=== PATIENT | female | born 1945 | race African-American/Black ===

== ENCOUNTER 2019-02-16 21:58 | Inpatient (IN) | payer BC, MEDICARE ==
[2019-02-16 22:30] LABS: INTERNATIONAL RATION (INR) 0.96; PROTHROMBIN TIME 13.3 SEC (11.4-15.4)
[2019-02-16 22:31] LABS: PARTIAL THROMBOPLASTIN TIME 31.1 SEC (23.5-35.8)
[2019-02-16] MEDS ORDERED: ONDANSETRON HCL INJ/PF 4 MG/2 ML SDV ONE (22:37)
[2019-02-16 22:39] LABS: ABSOLUTE EOSINOPHILS # (AUTO) 0.1 10^3/uL (0.0-0.6); ABSOLUTE MONOCYTES (AUTO) 0.6 10^3/uL (0.1-1.4); ABSOLUTE NEUT (AUTO) 2.5 10^3/uL (1.7-8.2); BASOPHILS % (AUTO) 0.5 % (0-2); EOSINOPHILS % (AUTO) 1.1 % (0-6); HEMATOCRIT 37.3 % (36.0-47.0); HEMOGLOBIN 12.6 g/dL (12.0-15.5); LYMPHOCYTES % (AUTO) 39.4 % (13-45); MEAN CORPUSCULAR HEMOGLOBIN 31.4 pg (27.0-33.4); MEAN CORPUSCULAR HGB CONC 33.9 g/dL (32.0-36.0); MEAN CORPUSCULAR VOLUME 93 fl (80-97); MONOCYTES % (AUTO) 11.2 % (3-13); PLATELET COUNT 280 10^3/uL (150-450); RED BLOOD COUNT 4.02 10^6/uL (3.72-5.28); RED CELL DISTRIBUTION WIDTH 14.3 % (11.5-14.0); SEGMENTED NEUTROPHILS % (AUTO) 47.8 % (42-78); TOTAL CELLS COUNTED % (AUTO) 100 %; WHITE BLOOD COUNT 5.1 10^3/uL (4.0-10.5)
--- NOTE | 2019-02-16 22:39 | RADIOLOGY REPORT (SQ) ---
EXAM DESCRIPTION: XR CHEST 1 VIEW COMPLETED DATE/TME: 02/16/2019 22:07 CLINICAL HISTORY: 73 years, Female, difficulty speaking COMPARISON: None. NUMBER OF VIEWS: 1 TECHNIQUE: Portable chest LIMITATIONS: None. FINDINGS: Heart size normal. Lungs clear. No pneumothorax. Mild atheromatous change thoracic aorta. Osteopenia. IMPRESSION: No acute cardiopulmonary process copyright 2010 [employer]- All Rights Reserved
--- NOTE | 2019-02-16 22:41 | RADIOLOGY REPORT (SQ) ---
EXAM DESCRIPTION: CT HEAD WITHOUT IV CONTRAST COMPLETED DATE/TME: 02/16/2019 22:07 CLINICAL HISTORY: 73 years, Female, difficulty speaking COMPARISON: None. TECHNIQUE: 208 Images stored on PACS. All CT scanners at this facility use dose modulation, iterative reconstruction, and/or weight based dosing when appropriate to reduce radiation dose to as low as reasonably achievable (ALARA). [facility]: Dose Right [facility]: CareDose [facility]: Dose Right [facility]: Teradose 4D [facility]: Picurio LIMITATIONS: None. FINDINGS: Globes are intact. Polyp of the left maxillary sinus. No displaced or depressed skull fracture. No intra or extra-axial hemorrhage. CT is limited for evaluation of acute infarct. However, there is a poorly defined area of diminished attenuation in the left frontal parietal region, concerning for evolving infarct. Consider further assessment with dedicated MRI. In addition, there is an area of diminished attenuation in the right posterior parietal region which could reflect an area of age indeterminate infarct as well. IMPRESSION: Poorly defined areas of diminished attenuation in the left frontal and right posterior parietal regions, concerning for areas of age indeterminate infarct. Consider follow-up with dedicated MRI. TECHNICAL DOCUMENTATION: Quality ID # 436: Final reports with documentation of one or more dose reduction techniques (e.g., Automated exposure control, adjustment of the mA and/or kV according to patient size, use of iterative reconstruction technique) copyright 2011 [employer]- All Rights Reserved
--- NOTE | 2019-02-16 22:43 | ER Document Report ---
ED General - General Chief Complaint: Altered Mental Status Stated Complaint: ALTERED MENTAL STATUS Time Seen by Provider: 02/16/19 22:20 Mode of Arrival: Medic Information source: Relative, Emergency Med Personnel Cannot obtain history due to: Altered mental status Notes: 73-year-old female with hypertension, atrial fibrillation presents via EMS from home after her grandson noticed that the patient was unable to complete her sentences. Patient was last seen well yesterday around 3 PM. She lives independently and is usually alert and oriented x3 and walks. Patient's daughter is at the bedside and is trying to call her son but has been unable to reach him. Patient was recently found to have atrial fibrillation and was started on metoprolol but never started her Eliquis per the family. Family denies previous history of stroke. Past Medical History - General Information source: Relative, Emergency Med Personnel Cannot obtain history due to: Uncooperative, Altered mental status - Social History Smoking Status: Unknown if Ever Smoked Frequency of alcohol use: None Drug Abuse: None Lives with: Alone Family History: Reviewed & Not Pertinent Patient has suicidal ideation: No Patient has homicidal ideation: No Review of Systems - Review of Systems -: Yes ROS unobtainable due to patient's medical condition Physical Exam - Vital signs Vitals: Pulse Ox 100 02/16/19 22:07 - Notes Notes: PHYSICAL EXAMINATION: GENERAL: Well-appearing, well-nourished and in no acute distress. HEAD: Atraumatic, normocephalic. EYES: Pupils equal round and reactive to light, extraocular movements intact, conjunctiva are normal. ENT: Nares patent, oropharynx clear without exudates. Moist mucous membranes. NECK: Normal range of motion, supple without lymphadenopathy LUNGS: Breath sounds clear to auscultation bilaterally and equal. No wheezes rales or rhonchi. HEART: Tachycardic, regular rhythm ABDOMEN: Soft, nontender, nondistended abdomen. No guarding, no rebound. No masses appreciated. Female : deferred Musculoskeletal: Normal range of motion, no pitting or edema. No cyanosis. NEUROLOGICAL: Alert, awake but does not follow commands. Aphasic. PSYCH: Normal mood, normal affect. SKIN: Warm, Dry, normal turgor, no rashes or lesions noted. Course - Re-evaluation Re-evalutation: 02/16/19 23:09 Laboratory 0402/16/19 02/16/19 22:15 22:15 22:15 WBC 5.1 RBC 4.02 Hgb 12.6 Hct 37.3 MCV 93 MCH 31.4 MCHC 33.9 RDW 14.3 H Plt Count 280 Seg Neutrophils % 47.8 Lymphocytes % 39.4 Monocytes % 11.2 Eosinophils % 1.1 Basophils % 0.5 Absolute Neutrophils 2.5 Absolute Lymphocytes 2.0 Absolute Monocytes 0.6 Absolute Eosinophils 0.1 Absolute Basophils 0.0 PT 13.3 INR 0.96 APTT 31.1 Sodium 142.5 Potassium 4.2 Chloride 106 Carbon Dioxide 26 Anion Gap 11 BUN 14 Creatinine 1.05 Est GFR ( Amer) > 60 Est GFR (Non-Af Amer) 52 L Glucose 114 H POC Glucose Calcium 9.9 Total Bilirubin 0.5 Direct Bilirubin 0.3 Neonat Total Bilirubin Not Reportable Neonat Direct Bilirubin Not Reportable Neonat Indirect Bili Not Reportable AST 20 ALT 21 Alkaline Phosphatase 90 Creatine Kinase 94 Total Protein 7.7 Albumin 4.1 02/16/19 22:23 WBC RBC Hgb Hct MCV MCH MCHC RDW Plt Count Seg Neutrophils % Lymphocytes % Monocytes % Eosinophils % Basophils % Absolute Neutrophils Absolute Lymphocytes Absolute Monocytes Absolute Eosinophils Absolute Basophils PT INR APTT Sodium Potassium Chloride Carbon Dioxide Anion Gap BUN Creatinine Est GFR ( Amer) Est GFR (Non-Af Amer) Glucose POC Glucose 106 Calcium Total Bilirubin Direct Bilirubin Neonat Total Bilirubin Neonat Direct Bilirubin Neonat Indirect Bili AST ALT Alkaline Phosphatase Creatine Kinase Total Protein Albumin Chest X-Ray 02/16/19 22:07 IMPRESSION: No acute cardiopulmonary process copyright 2010 [employer]- All Rights Reserved Head CT 02/16/19 22:07 IMPRESSION: Poorly defined areas of diminished attenuation in the left frontal and right posterior parietal regions, concerning for areas of age indeterminate infarct. Consider follow-up with dedicated MRI. TECHNICAL DOCUMENTATION: Quality ID # 436: Final reports with documentation of one or more dose reduction techniques (e.g., Automated exposure control, adjustment of the mA and/or kV according to patient size, use of iterative reconstruction technique) copyright 2011 [employer]- All Rights Reserved Temp Pulse Resp BP Pulse Ox 98 21 H 157/96 H 98 02/16/19 22:15 02/16/19 22:15 02/16/19 22:15 02/16/19 22:15 02/17/19 02:47 73-year-old female with with hypertension, new diagnosis of atrial fibrillation presents via EMS a phasic. Vital signs reviewed upon arrival and patient is tachycardic. She was placed on a playground monitor and found to be in atrial fibrillation with RVR. Patient is alert, awake and smiling but is unable to answer any questions. Patient moves all extremities but does not follow commands. Her daughters are at the bedside and she is unable to tell me their names. Patient's heart rate is 130 so Cardizem drip was initiated. Aspirin was given. CT of the head shows evidence of acute infarct. We are unable to establish a clear onset of symptoms and the patient was last seen completely well greater than 24 hours ago. CBC, CMP are unremarkable. Patient has been accepted for admission to the [facility] by the hospitalist Dr. Downey. - Vital Signs Vital signs: Temp Pulse Resp BP Pulse Ox 98.7 F 103 H 19 111/68 97 02/16/19 22:15 02/17/19 00:00 02/17/19 01:31 02/17/19 01:31 02/17/19 01:31 - Laboratory Result Diagrams: 02/16/19 22:15 02/16/19 22:15 Laboratory results interpreted by me: 02/16/19 02/16/19 02/16/19 22:15 22:15 22:15 RDW 14.3 H Est GFR (Non-Af Amer) 52 L Glucose 114 H LDL Cholesterol Direct 122 H - Diagnostic Test Radiology reviewed: Image reviewed, Reports reviewed - EKG Interpretation by Me Rate: Tachycardia Rhythm: A.Fib When compared to previous EKG there are: Changes noted Critical Care Note - Critical Care Note Total time excluding time spent on procedures (mins): 40 - Minutes of critical care time spent in direct contact evaluating and reevaluating the patient, treating symptoms, reviewing labs and studies and speaking with family and consultants excluding any procedures Discharge - Discharge Clinical Impression: Atrial fibrillation with RVR, Aphasia, Acute embolic stroke Condition: Fair Disposition: ADMITTED INPATIENT Admitting Provider: Shayan (Hospitalist) Unit Admitted: [facility]
[2019-02-16] MEDS ORDERED: DILTIAZEM HCL/D5W 125 MG/125 ML RTUINJ IV PRN ×2 (22:44→23:44)
[2019-02-16 22:57] LABS: ALANINE AMINOTRANSFERASE 21 U/L (9-52); ALBUMIN 4.1 g/dL (3.5-5.0); ALKALINE PHOSPHATASE 90 U/L (38-126); ANION GAP 11 (5-19); ASPARTATE AMINO TRANSFERASE 20 U/L (14-36); BILIRUBIN,DIRECT 0.3 mg/dL (0.0-0.4); BILIRUBIN,TOTAL 0.5 mg/dL (0.2-1.3); BLOOD UREA NITROGEN 14 mg/dL (7-20); CALCIUM 9.9 mg/dL (8.4-10.2); CARBON DIOXIDE 26 mmol/L (22-30); CHLORIDE 106 mmol/L (98-107); CREATINE KINASE 94 U/L (30-135); GLUCOSE 114 mg/dL (75-110); POTASSIUM 4.2 mmol/L (3.6-5.0); SODIUM 142.5 mmol/L (137-145); TOTAL PROTEIN 7.7 g/dL (6.3-8.2)
[2019-02-16] MEDS ORDERED: ASPIRIN 81 MG TABLET, CHEWABLE PO ONE (23:01)
[2019-02-16 23:09] LABS: CREATINE KINASE MB 0.36 ng/mL (<4.55)
[2019-02-16 23:19] LABS: TROPONIN I < 0.012 ng/mL
[2019-02-16] MEDS ORDERED: MAGNESIUM HYDROXIDE SUSP 30 ML UDCUP PO PRN (23:35)
[2019-02-16] MEDS ORDERED: TRAMADOL HCL 50 MG TABLET PO PRN (23:35)
[2019-02-16] MEDS ORDERED: DOCUSATE SODIUM 100 MG CAPSULE PO PRN (23:35)
[2019-02-16] MEDS ORDERED: TEMAZEPAM 15 MG CAPSULE PO PRN (23:35)
[2019-02-16] MEDS ORDERED: ONDANSETRON HCL INJ/PF 4 MG/2 ML SDV IV PRN (23:35)
[2019-02-16 23:39] LABS: CHOLESTEROL 177.54 mg/dL (0-200); TRIGLYCERIDES 58 mg/dL (<150)
[2019-02-16 23:50] LABS: DIRECT LDL 122 mg/dL (<100)
[2019-02-17] MEDS ORDERED: APIXABAN 5 MG TABLET PO ONE (01:00)
--- NOTE | 2019-02-17 03:53 | PDOC H&P ---
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 He noted that she was able to walk and move all of her extremities but was unable to speak and seemed to be unable to understand more complicated questions or commands. She was immediately brought to the hospital and was found to have an expressive aphasia and some degree of a receptive aphasia in the emergency room. CT confirmed areas of hypodensity consistent with indeterminate age infarct without evidence of any acute hemorrhage. Due to the patient's a aphasia she is unable to participate in her medical history. Her son relates that she was recently found to have atrial fibrillation by her dope mixer Dr. 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 Patient will be admitted to hospital follow the stroke protocol. Past Medical History Past Medical History: Past medical history, past surgical history, social history, family medical history and review of systems are severely limited by the patient's expressive and partial receptive aphasia. Most information is taken from the patient's records and information obtained from a family member. Cardiac Medical History: Reports: Atrial Fibrillation, Hypertension Denies: Myocardial Infarction Pulmonary Medical History: Denies: Asthma, Chronic Obstructive Pulmonary Disease (COPD) EENT Medical History: Reports: Eyes - Wears corrective lenses Denies: Cataracts Neurological Medical History: Denies: Hemorrhagic CVA, Ischemic CVA, Seizures Endocrine Medical History: Denies: Diabetes Mellitus Type 1, Diabetes Mellitus Type 2, Hyperthyroidism, Hypothyroidism Renal/ Medical History: Denies: Chronic Kidney Disease, Nephrolithiasis Malignancy Medical History: Reports: None GI Medical History: Denies: Cirrhosis, Hepatitis Musculoskeltal Medical History: Denies: Arthritis, Gout Skin Medical History: Denies: Eczema, Psoriasis Psychiatric Medical History: Denies: Alcohol Dependency, Substance Abuse, Tobacco Dependency Traumatic Medical History: Reports: None Hematology: Denies: Anemia, Bleeding Tendencies Infectious Medical History: Reports: None Past Surgical History Past Surgical History: Past surgical history is unknown, with no recent surgeries to the best knowledgeable source available. Social History Information Source: Relative Lives with: Alone Smoking Status: Never Smoker Frequency of Alcohol Use: None Hx Recreational Drug Use: No Drugs: None Hx Prescription Drug Abuse: No - Advance Directive Resuscitation Status: Full Code Surrogate healthcare decision maker:: Malinda Riki patient's daughter Family History Family History: Family history could not be obtained as no knowledgeable source for the patient's siblings or parents medical history was available. Parental Family History Reviewed: No Children Family History Reviewed: No Sibling(s) Family History Reviewed.: No Medication/Allergy Home Medications: Metoprolol Tartrate [Lopressor 25 mg Tablet] 25 mg PO BID 02/17/19 Propafenone HCl [Propafenone HCl ER] 225 mg PO BID 02/17/19 Review of Systems ROS unobtainable: Other - Could not be obtained due to patient's expressive and receptive aphasia. Physical Exam Vital Signs: Temp Pulse Resp BP Pulse Ox 98 21 H 157/96 H 98 02/16/19 22:15 02/16/19 22:15 02/16/19 22:15 02/16/19 22:15 General appearance: PRESENT: no acute distress, cooperative Head exam: PRESENT: atraumatic, normocephalic Eye exam: ABSENT: conjunctival injection, scleral icterus Ear exam: PRESENT: normal external ear exam. ABSENT: bleeding, drainage Mouth exam: PRESENT: dry mucosa, neck supple Neck exam: ABSENT: thyromegaly, tracheal deviation Respiratory exam: PRESENT: clear to auscultation trista, symmetrical, unlabored Cardiovascular exam: PRESENT: irregular rhythm, tachycardia. ABSENT: clicks, gallop, rubs Pulses: PRESENT: normal radial pulses, normal dorsalis pedis pul Vascular exam: PRESENT: normal capillary refill. ABSENT: pallor GI/Abdominal exam: PRESENT: normal bowel sounds, soft Rectal exam: PRESENT: deferred Extremities exam: ABSENT: joint swelling, pedal edema Musculoskeletal exam: PRESENT: full ROM, normal inspection Neurological exam: PRESENT: alert, awake, CN II-XII grossly intact, aphasic Psychiatric exam: PRESENT: other - Unable to assess due to aphasia Skin exam: PRESENT: dry, intact, warm. ABSENT: jaundice, rash, urticaria Results Laboratory Results: 02/16/19 22:15 02/16/19 22:15 04/16/19 04/16/19 22:15 22:15 WBC 5.1 RBC 4.02 Hgb 12.6 Hct 37.3 MCV 93 MCH 31.4 MCHC 33.9 RDW 14.3 H Plt Count 280 Seg Neutrophils % 47.8 Lymphocytes % 39.4 Monocytes % 11.2 Eosinophils % 1.1 Basophils % 0.5 Absolute Neutrophils 2.5 Absolute Lymphocytes 2.0 Absolute Monocytes 0.6 Absolute Eosinophils 0.1 Absolute Basophils 0.0 Sodium 142.5 Potassium 4.2 Chloride 106 Carbon Dioxide 26 Anion Gap 11 BUN 14 Creatinine 1.05 Est GFR ( Amer) > 60 Est GFR (Non-Af Amer) 52 L Glucose 114 H Calcium 9.9 Total Bilirubin 0.5 AST 20 ALT 21 Alkaline Phosphatase 90 Total Protein 7.7 Albumin 4.1 02/16/19 22:15 Creatine Kinase 94 Impressions: Chest X-Ray 02/16/19 22:07 IMPRESSION: No acute cardiopulmonary process copyright 2010 [employer]- All Rights Reserved Head CT 02/16/19 22:07 IMPRESSION: Poorly defined areas of diminished attenuation in the left frontal and right posterior parietal regions, concerning for areas of age indeterminate infarct. Consider follow-up with dedicated MRI. TECHNICAL DOCUMENTATION: Quality ID # 436: Final reports with documentation of one or more dose reduction techniques (e.g., Automated exposure control, adjustment of the mA and/or kV according to patient size, use of iterative reconstruction technique) copyright 2010 [employer]- All Rights Reserved Assessment and Plan - Diagnosis (1) Acute embolic stroke Is this a current diagnosis for this admission?: Yes Plan: Patient will be evaluated with an MRI of the head/brain to more thoroughly identify the stroke. Additionally an MRA of the head and an MRI of the neck will be performed to evaluate patient's cerebrovascular supply. Patient will be entered into the stroke protocol program. (2) Aphasia Is this a current diagnosis for this admission?: Yes Plan: Patient will be evaluated by speech therapy with appropriate intervention as per their evaluation. (3) Atrial fibrillation with RVR Is this a current diagnosis for this admission?: Yes Plan: Patient will be treated with Cardizem IV until her heart rate has been stabilized. She will also be started on Eliquis 5 mg p.o. twice daily with her first dose stat. (4) HTN (hypertension) Qualifiers: Hypertension type: essential hypertension Qualified Code(s): I10 - Essential (primary) hypertension Is this a current diagnosis for this admission?: Yes Plan: Patient will be continued on her usual antihypertensive medications. Dr. Roman will be consulted for evaluation of his patient. - Time Time Spent with patient: 15-24 minutes Medications reviewed and adjusted accordingly: Yes Anticipated discharge: SNF - Inpatient Certification Based on my medical assessment, after consideration of the patient's comorbidities, presenting symptoms, or acuity I expect that the services needed warrant INPATIENT care.: Yes I certify that my determination is in accordance with my understanding of Medicare's requirements for reasonable and necessary INPATIENT services [42 CFR 412.3e].: Yes Medical Necessity: Need Close Monitoring Due to Risk of Patient Decompensation, Need For Continuous Telemetry Monitoring, Need for Neurological Checks, Risk of Complication if Not Cared For in Hospital
[2019-02-17 08:06] LABS: HEMOGLOBIN 12.2 g/dL (12.0-15.5); MEAN CORPUSCULAR HEMOGLOBIN 31.1 pg (27.0-33.4); MEAN CORPUSCULAR HGB CONC 33.8 g/dL (32.0-36.0); MEAN CORPUSCULAR VOLUME 92 fl (80-97); PLATELET COUNT 278 10^3/uL (150-450); RED BLOOD COUNT 3.91 10^6/uL (3.72-5.28); RED CELL DISTRIBUTION WIDTH 14.5 % (11.5-14.0); WHITE BLOOD COUNT 4.7 10^3/uL (4.0-10.5)
[2019-02-17 08:25] LABS: ANION GAP 7 (5-19); BLOOD UREA NITROGEN 12 mg/dL (7-20); CALCIUM 9.5 mg/dL (8.4-10.2); CARBON DIOXIDE 28 mmol/L (22-30); CHLORIDE 106 mmol/L (98-107); GLUCOSE 93 mg/dL (75-110); SODIUM 141.1 mmol/L (137-145)
--- NOTE | 2019-02-17 08:31 | EKG REPORT ---
SEVERITY:- ABNORMAL ECG - ATRIAL FIBRILLATION MULTIFORM VENTRICULAR PREMATURE COMPLEXES BORDERLINE PROLONGED QT INTERVAL : Confirmed by: Natacha Edward MD 17-Feb-2019 08:29:54
[2019-02-17] MEDS ORDERED: LORAZEPAM INJ 2 MG/1 ML VIAL IV ONE (09:00)
[2019-02-17 09:08] LABS: FREE T3 3.97 pg/mL (2.77-5.27); FREE T4 (FREE THYROXINE) 1.48 ng/dL (0.78-2.19)
[2019-02-17] MEDS: APIXABAN 5 MG TABLET PO SCH ×2 (10:33→17:44)
--- NOTE | 2019-02-17 10:44 | RADIOLOGY REPORT (SQ) ---
EXAM DESCRIPTION: MRA HEAD WITHOUT COMPLETED DATE/TIME: 02/17/2019 9:32 am REASON FOR STUDY: Acute receptive and expressive aphasia COMPARISON: None. TECHNIQUE: Axial 3-D [id number]-lrxenf acquisition imaging performed through the brain in the area of t he kashia of [place]. Images reformatted using 3-D MIPS. LIMITATIONS: None. FINDINGS: SOURCE IMAGES: No unexpected findings on source images. No large masses. 3-D MIP: No aneurysm. No occlusions. No significant stenosis. OTHER: No other significant finding. IMPRESSION: NORMAL MRA OF THE PAUMA OF [place]. TECHNICAL DOCUMENTATION: JOB ID: [id number] [employer]- All Rights Reserved Reading location - IP/workstation name: [email or web address]
--- NOTE | 2019-02-17 10:49 | RADIOLOGY REPORT (SQ) ---
EXAM DESCRIPTION: MRI HEAD WITHOUT COMPLETED DATE/TIME: 02/17/2019 9:32 am REASON FOR STUDY: Acute receptive and expressive aphasia COMPARISON: None. TECHNIQUE: Multiplanar imaging includes non-contrasted T1, T2, FLAIR, and diffusion with ADC map seq uences. Images stored on PACS. LIMITATIONS: None. FINDINGS: ANATOMY: No anomalies. Normal vascular flow voids. Pituitary fossa normal. CSF SPACES: Normal in size and contour. No hemorrhage. CEREBRUM: Sulci and gyri normal in size and contour. Prominent areas of increased white matter signa l on FLAIR imaging. No evidence of hemorrhage, mass, or extraaxial fluid collection. POSTERIOR FOSSA: No signal alteration. No hemorrhage. No edema, masses or mass effect. Internal rahul tory canals, cerebello-pontine angles, mastoids normal. DIFFUSION IMAGING: There is a large area of restricted diffusion in the left temporoparietal area. T here is a small area of restricted diffusion in the right temporal lobe. There is additional restric jovanny diffusion in the right posterior parietal lobe and in the right lobe of the cerebellum. ORBITS: No masses. Globes normal. PARANASAL SINUSES: No fluid levels. Mucosa normal. OTHER: No other significant finding. IMPRESSION: There is large acute infarction in the left frontotemporal lobe. There are smaller area s of acute infarction in the right anglican lobe and right posterior parietal lobe. There is a small a cute infarction in the right lobe of the cerebellum. EVIDENCE OF ACUTE STROKE: YES. Bilateral middle cerebral arteries. Right posterior cerebral artery . TECHNICAL DOCUMENTATION: JOB ID: [id number] [employer]- All Rights Reserved Reading location - IP/workstation name: [email or web address]
--- NOTE | 2019-02-17 12:52 | RADIOLOGY REPORT (SQ) ---
EXAM DESCRIPTION: CAROTID DOPPLER COMPLETED DATE/TIME: 02/17/2019 12:19 pm REASON FOR STUDY: Acute a aphasia receptive and expressive COMPARISON: None. TECHNIQUE: Grayscale ultrasound, Doppler velocity and spectra, and color Doppler images acquired of the extra-cranial carotid and vertebral arteries. Images stored on PACS. LIMITATIONS: None. FINDINGS: RIGHT CAROTID CCA Velocities: Within normal limits. ICA Velocities Peak systolic 70 cm/s. End diastolic 36 cm/s. Proximal ICA/CCA peak systolic ratio 1.0. Spectra normal. No significant plaque. LEFT CAROTID CCA Velocities: Within normal limits. ICA Velocities Peak systolic 85 cm/s. End diastolic 43 cm/s. Proximal ICA/CCA peak systolic ratio 1.4. Spectra normal. No significant plaque. VERTEBRAL ARTERIES: Antegrade flow. Normal waveforms. SUBCLAVIAN ARTERIES: Not imaged OTHER: No other significant finding. IMPRESSION: NO HEMODYNAMICALLY SIGNIFICANT STENOSIS. COMMENT: Quality ID #195: Velocity criteria are extrapolated from the diameter data as defined by t he Society of Radiologists in Ultrasound Consensus Conference. Radiology 2003: 229; 340-346. TECHNICAL DOCUMENTATION: JOB ID: [id number] [employer]- All Rights Reserved Reading location - IP/workstation name: [email or web address]
[2019-02-17] MEDS ORDERED: METOPROLOL TARTRATE PF/INJ 5 MG/5 ML SDV IV PRN (16:15)
[2019-02-17] MEDS: DEXTROSE 5%-NORMAL SALINE 1,000 ML IV PRN (17:08)
--- NOTE | 2019-02-17 18:46 | PDOC PROGRESS REPORT ---
Subjective Progress Note for:: 02/17/19 Subjective:: ALEXANDER MENA is a 73 year old female who presented to the emergency room with a history of sudden onset of aphasia noted by her son when he saw her today having noted that she was well yesterday at 3 PM with no sign of a aphasia at that time. He noted that she was able to walk and move all of her extremities but was unable to speak and seemed to be unable to understand more complicated questions or commands. She was immediately brought to the hospital and was f ound to have an expressive aphasia and some degree of a receptive aphasia in the emergency room. CT confirmed areas of hypodensity consistent with indeterminate age infarct without evidence of any acute hemorrhage. Due to the patient's a aphasia she is unable to participate in her medical history. 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 02/17/2019. Neurologically unchanged. Patient was anxious and fidgety in the morning and received 1 dose of IV benzos in preparation for undergoing MRI of the brain. Patient has been somnolent but arousable with severe a aphasia. Family has been on the bedside. MRI of brain confirmed bilateral MCA infarcts. 2D carotid and MRA head were negative. Pending 2D echo. Reason For Visit: ACUTE EMBOLIC STROKE Physical Exam Vital Signs: Temp Pulse Resp BP Pulse Ox 97.6 F 88 18 121/70 99 02/17/19 12:12 02/17/19 18:00 02/17/19 16:00 02/17/19 18:00 02/17/19 16:00 Intake & Output 02/16/19 02/17/19 02/18/19 06:59 06:59 06:59 Weight 65.9 kg General appearance: PRESENT: no acute distress, well-developed, well-nourished Head exam: PRESENT: atraumatic, normocephalic Eye exam: PRESENT: PERRLA Neck exam: ABSENT: carotid bruit, JVD, lymphadenopathy, thyromegaly Respiratory exam: PRESENT: clear to auscultation trista. ABSENT: rales, rhonchi, wheezes Cardiovascular exam: PRESENT: RRR. ABSENT: diastolic murmur, rubs, systolic murmur Extremities exam: PRESENT: full ROM. ABSENT: calf tenderness, clubbing, pedal edema Neurological exam: PRESENT: alert, awake, CN II-XII grossly intact, other - Moves all extremities. Easily arousable, does not follow any commands due to severe receptive and expressive aphasia. Skin exam: PRESENT: dry, intact, warm. ABSENT: cyanosis, rash Results Laboratory Results: 02/17/19 07:00 02/17/19 07:00 02/16/19 02/16/19 02/16/19 22:15 22:15 22:15 WBC 5.1 RBC 4.02 Hgb 12.6 Hct 37.3 MCV 93 MCH 31.4 MCHC 33.9 RDW 14.3 H Plt Count 280 Seg Neutrophils % 47.8 Lymphocytes % 39.4 Monocytes % 11.2 Eosinophils % 1.1 Basophils % 0.5 Absolute Neutrophils 2.5 Absolute Lymphocytes 2.0 Absolute Monocytes 0.6 Absolute Eosinophils 0.1 Absolute Basophils 0.0 Sodium 142.5 Potassium 4.2 Chloride 106 Carbon Dioxide 26 Anion Gap 11 BUN 14 Creatinine 1.05 Est GFR ( Amer) > 60 Est GFR (Non-Af Amer) 52 L Glucose 114 H Calcium 9.9 Total Bilirubin 0.5 AST 20 ALT 21 Alkaline Phosphatase 90 Total Protein 7.7 Albumin 4.1 Triglycerides 58 Cholesterol 177.54 LDL Cholesterol Direct 122 H VLDL Cholesterol 12.0 HDL Cholesterol 47 Free T4 Free T3 pg/mL 02/17/19 02/17/19 02/17/19 07:00 07:00 07:00 WBC 4.7 RBC 3.91 Hgb 12.2 Hct 36.0 MCV 92 MCH 31.1 MCHC 33.8 RDW 14.5 H Plt Count 278 Seg Neutrophils % Lymphocytes % Monocytes % Eosinophils % Basophils % Absolute Neutrophils Absolute Lymphocytes Absolute Monocytes Absolute Eosinophils Absolute Basophils Sodium 141.1 Potassium 4.0 Chloride 106 Carbon Dioxide 28 Anion Gap 7 BUN 12 Creatinine 0.96 Est GFR ( Amer) > 60 Est GFR (Non-Af Amer) 57 L Glucose 93 Calcium 9.5 Total Bilirubin AST ALT Alkaline Phosphatase Total Protein Albumin Triglycerides Cholesterol LDL Cholesterol Direct VLDL Cholesterol HDL Cholesterol Free T4 1.48 Free T3 pg/mL 3.97 02/16/19 02/16/19 22:15 22:15 Creatine Kinase 94 CK-MB (CK-2) 0.36 Troponin I < 0.012 Impressions: Chest X-Ray 02/16/19 22:07 IMPRESSION: No acute cardiopulmonary process copyright 2010 [employer]- All Rights Reserved Head CT 02/16/19 22:07 IMPRESSION: Poorly defined areas of diminished attenuation in the left frontal and right posterior parietal regions, concerning for areas of age indeterminate infarct. Consider follow-up with dedicated MRI. TECHNICAL DOCUMENTATION: Quality ID # 436: Final reports with documentation of one or more dose reduction techniques (e.g., Automated exposure control, adjustment of the mA and/or kV according to patient size, use of iterative reconstruction technique) copyright 2010 [employer]- All Rights Reserved Brain MRI with MRA 02/17/19 00:00 IMPRESSION: NORMAL MRA OF THE [place]. Carotid Doppler Study 02/17/19 00:00 IMPRESSION: NO HEMODYNAMICALLY SIGNIFICANT STENOSIS. Head MRI 02/17/19 00:00 IMPRESSION: There is large acute infarction in the left frontotemporal lobe. There are smaller areas of acute infarction in the right shinto lobe and right posterior parietal lobe. There is a small acute infarction in the right lobe of the cerebellum. EVIDENCE OF ACUTE STROKE: YES. Bilateral middle cerebral arteries. Right posterior cerebral artery. Assessment and Plan - Diagnosis (1) Right middle cerebral artery stroke Is this a current diagnosis for this admission?: Yes Plan: Bilateral MCA territory embolic stroke. Most likely secondary to underlying A. fib. Brain MRA/2D carotid Doppler negative for any hemodynamically significant stenosis. MRI of the brain positive for large acute infarction in the left frontotemporal lobe. There are smaller areas of acute infarction in the right shinto lobe and right posterior parietal lobe. There is a small acute infarction in the right lobe of the cerebellum. Continue PT/OT/ST. Continue antiplatelets, high intensity statins, optimize blood pressure. (2) Left middle cerebral artery stroke Is this a current diagnosis for this admission?: Yes Plan: Bilateral MCA territory embolic stroke. Most likely secondary to underlying A. fib. Brain MRA/2D carotid Doppler negative for any hemodynamically significant stenosis. MRI of the brain positive for large acute infarction in the left frontotemporal lobe. There are smaller areas of acute infarction in the right shinto lobe and right posterior parietal lobe. There is a small acute infarction in the right lobe of the cerebellum. Continue PT/OT/ST. Continue antiplatelets, high intensity statins, optimize blood pressure. (3) Acute embolic stroke Is this a current diagnosis for this admission?: Yes Plan: Patient will be evaluated with an MRI of the head/brain to more thoroughly identify the stroke. Additionally an MRA of the head and an MRI of the neck will be performed to evaluate patient's cerebrovascular supply. Patient will be entered into the stroke protocol program. (4) HTN (hypertension) Qualifiers: Hypertension type: essential hypertension Qualified Code(s): I10 - Essential (primary) hypertension Is this a current diagnosis for this admission?: Yes Plan: Normotensive, euvolemic, continue current meds. (5) Atrial fibrillation with RVR Is this a current diagnosis for this admission?: Yes Plan: Rate controlled. Continue IV Cardizem. Switch to beta-blockers once appropriate. Continue Eliquis.
[2019-02-17] MEDS: ATORVASTATIN CALCIUM 80 MG TABLET PO SCH (21:21)
[2019-02-18 05:02] LABS: HEMOGLOBIN 12.1 g/dL (12.0-15.5); MEAN CORPUSCULAR HEMOGLOBIN 30.7 pg (27.0-33.4); MEAN CORPUSCULAR HGB CONC 33.6 g/dL (32.0-36.0); MEAN CORPUSCULAR VOLUME 91 fl (80-97); PLATELET COUNT 272 10^3/uL (150-450); RED BLOOD COUNT 3.94 10^6/uL (3.72-5.28); RED CELL DISTRIBUTION WIDTH 14.4 % (11.5-14.0); WHITE BLOOD COUNT 4.6 10^3/uL (4.0-10.5)
[2019-02-18] MEDS: DEXTROSE 5%-NORMAL SALINE 1,000 ML IV PRN ×2 (05:19→23:44)
[2019-02-18 05:43] LABS: ANION GAP 6 (5-19); BLOOD UREA NITROGEN 12 mg/dL (7-20); CALCIUM 9.4 mg/dL (8.4-10.2); CARBON DIOXIDE 24 mmol/L (22-30); CHLORIDE 112 mmol/L (98-107); GLUCOSE 106 mg/dL (75-110); SODIUM 142.1 mmol/L (137-145)
[2019-02-18] MEDS: ASPIRIN 81 MG TABLET, CHEWABLE PO SCH (09:41)
[2019-02-18] MEDS: APIXABAN 5 MG TABLET PO SCH ×2 (09:41→17:10)
--- NOTE | 2019-02-18 14:42 | PDOC PROGRESS REPORT ---
Subjective Progress Note for:: 02/18/19 Subjective:: ALEXANDER MENA is a 73 year old female who presented to the emergency room with a history of sudden onset of aphasia noted by her son when he saw her today having noted that she was well yesterday at 3 PM with no sign of a aphasia at that time. He noted that she was able to walk and move all of her extremities but was unable to speak and seemed to be unable to understand more complicated questions or commands. She was immediately brought to the hospital and was f ound to have an expressive aphasia and some degree of a receptive aphasia in the emergency room. CT confirmed areas of hypodensity consistent with indeterminate age infarct without evidence of any acute hemorrhage. Due to the patient's a aphasia she is unable to participate in her medical history. 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 02/17/2019. Neurologically unchanged. Patient was anxious and fidgety in the morning and received 1 dose of IV benzos in preparation for undergoing MRI of the brain. Patient has been somnolent but arousable with severe a aphasia. Family has been on the bedside. MRI of brain confirmed bilateral MCA infarcts. 2D carotid and MRA head were negative. Pending 2D echo. 02/18/2019. Significant improvement of her neurological symptoms. Patient is alert awake cooperative physical examination unfortunately she has severe expressive and receptive aphasia. She does follow some commands, can repeat her name and recognizes her family members around. Reason For Visit: ACUTE EMBOLIC STROKE Physical Exam Vital Signs: Temp Pulse Resp BP Pulse Ox 98.2 F 115 H 20 107/84 97 02/18/19 08:17 02/18/19 14:00 02/18/19 12:00 02/18/19 14:00 02/18/19 12:00 Intake & Output 02/17/19 02/18/19 02/19/19 06:59 06:59 06:59 Intake Total 1025 122 Balance 1025 122 Weight 65.9 kg 62.5 kg General appearance: PRESENT: no acute distress, well-developed, well-nourished Head exam: PRESENT: atraumatic, normocephalic Neck exam: ABSENT: carotid bruit, JVD, lymphadenopathy, thyromegaly Respiratory exam: PRESENT: clear to auscultation trista. ABSENT: rales, rhonchi, wheezes Cardiovascular exam: PRESENT: RRR. ABSENT: diastolic murmur, rubs, systolic murmur GI/Abdominal exam: PRESENT: normal bowel sounds, soft. ABSENT: distended, guarding, mass, organolmegaly, rebound, tenderness Neurological exam: PRESENT: alert, awake, oriented to person, CN II-XII grossly intact, motor sensory deficit Results Laboratory Results: 02/18/19 04:46 02/18/19 04:46 02/18/19 02/18/19 02/18/19 04:46 04:46 04:46 WBC 4.6 RBC 3.94 Hgb 12.1 Hct 36.0 MCV 91 MCH 30.7 MCHC 33.6 RDW 14.4 H Plt Count 272 Sodium 142.1 Potassium 4.0 Chloride 112 H Carbon Dioxide 24 Anion Gap 6 BUN 12 Creatinine 0.92 Est GFR ( Amer) > 60 Est GFR (Non-Af Amer) > 60 Glucose 106 Calcium 9.4 Magnesium 1.9 TSH 1.07 02/16/19 02/16/19 22:15 22:15 Creatine Kinase 94 CK-MB (CK-2) 0.36 Troponin I < 0.012 Impressions: Chest X-Ray 02/16/19 22:07 IMPRESSION: No acute cardiopulmonary process copyright 2010 [employer]- All Rights Reserved Head CT 02/16/19 22:07 IMPRESSION: Poorly defined areas of diminished attenuation in the left frontal and right posterior parietal regions, concerning for areas of age indeterminate infarct. Consider follow-up with dedicated MRI. TECHNICAL DOCUMENTATION: Quality ID # 436: Final reports with documentation of one or more dose reduction techniques (e.g., Automated exposure control, adjustment of the mA and/or kV according to patient size, use of iterative reconstruction technique) copyright 2011 [employer]- All Rights Reserved Brain MRI with MRA 02/17/19 00:00 IMPRESSION: NORMAL MRA OF THE [place]. Carotid Doppler Study 02/17/19 00:00 IMPRESSION: NO HEMODYNAMICALLY SIGNIFICANT STENOSIS. Head MRI 02/17/19 00:00 IMPRESSION: There is large acute infarction in the left frontotemporal lobe. There are smaller areas of acute infarction in the right episcopal lobe and right posterior parietal lobe. There is a small acute infarction in the right lobe of the cerebellum. EVIDENCE OF ACUTE STROKE: YES. Bilateral middle cerebral arteries. Right posterior cerebral artery. Assessment and Plan - Diagnosis (1) Right middle cerebral artery stroke Is this a current diagnosis for this admission?: Yes Plan: Bilateral MCA territory embolic stroke. Most likely secondary to underlying A. fib. Brain MRA/2D carotid Doppler negative for any hemodynamically significant stenosis. MRI of the brain positive for large acute infarction in the left frontotemporal lobe. There are smaller areas of acute infarction in the right episcopal lobe and right posterior parietal lobe. There is a small acute infarction in the right lobe of the cerebellum. Continue PT/OT/ST. Continue antiplatelets, high intensity statins, optimize blood pressure. Consult discharge planning for rehab placement. (2) Left middle cerebral artery stroke Is this a current diagnosis for this admission?: Yes Plan: Bilateral MCA territory embolic stroke. Most likely secondary to underlying A. fib. Brain MRA/2D carotid Doppler negative for any hemodynamically significant stenosis. MRI of the brain positive for large acute infarction in the left frontotemporal lobe. There are smaller areas of acute infarction in the right episcopal lobe and right posterior parietal lobe. There is a small acute infarction in the right lobe of the cerebellum. Continue PT/OT/ST. Continue antiplatelets, high intensity statins, optimize blood pressure. (3) HTN (hypertension) Qualifiers: Hypertension type: essential hypertension Qualified Code(s): I10 - Essential (primary) hypertension Is this a current diagnosis for this admission?: Yes Plan: Normotensive, euvolemic. DC Cardizem drip. Started beta-blockers. Adjust meds as needed. (4) Atrial fibrillation with RVR Is this a current diagnosis for this admission?: Yes Plan: Rate controlled. DC Cardizem drip. Start on beta-blockers. Monitor vitals were just associated. Continue Eliquis. Outpatient PCP and cardiology follow-up.
[2019-02-18] MEDS: ATORVASTATIN CALCIUM 80 MG TABLET PO SCH (21:18)
[2019-02-18] MEDS ORDERED: METOPROLOL TARTRATE 25 MG TABLET PO SCH (22:00)
--- NOTE | 2019-02-18 23:09 | XCELERA REPORT ---
[address] [address] Transthoracic Echocardiogram Report Name: ALEXANDER MENA Age: 73 yrs Gender: Female : 1945 Patient Status: Inpatient Patient Location: [address] [place] [address] Study Date: 02/18/2019 06:43 PM Height: 64 in Weight: 145 lb BSA: 1.7 m2 Procedure: A two-dimensional transthoracic echocardiogram with color flow and Doppler was performed. Images were not obtained from all of the standard acoustic windows due to the limited scope of the study. Reason For Study: CVA History: CVA. Ordering Physician: ARISTIDES TSAI Performed By: Ivory Partida Interpretation Summary There is no obvious cardiac source of embolus noted on this transthoracic echocardiogram. Follow-up with a FABIANO is suggested if cardiac source is still suspected. The left ventricle is normal in size. There is normal left ventricular wall thickness. No True apical 2 chamber views obtained.Hence cannot comment on the apical anterior , the basal anterior, the basal inferior and apical inferior watt.The mid anterior , the mid inferior and the rest of the LV watt contract normally. .Normal LVEF is normal and is greater than 60% in the limited views. LV diastolic function could not be adequately assessed due to atrial fibrilation. There is no thrombus. NO ASD VSD ,or PFO. The right ventricle is normal in size and function. The right atrium is normal. The left atrial size is normal. There is no evidence of mitral valve prolapse. There is no vegetation seen on the mitral valve. There is no mitral valve stenosis. There is a mild to moderate amount of mitral regurgitation Eccentric posteriorly directed R jet. There is no aortic valve stenosis There is no LVOT obstruction. No aortic regurgitation is present. There is no tricuspid stenosis. There is a trace to mild amount of tricuspid regurgitation No significant pulmonary hypertension.RVSP is 27 t0 32 mm of Hg , with RA claudette of 5 to 10. There is no pulmonic valvular regurgitation. The aortic root is normal size. The inferior vena cava appeared normal and decreased > 50% with respiration (RAP 5-10 mmHg) There is no pericardial effusion. There is no obvious cardiac source of embolus noted on this transthoracic echocardiogram. Follow-up with a FABIANO is suggested if cardiac source is still suspected MMode/2D Measurements & Calculations RVDd: 2.6 cm LVIDd: 4.2 cm FS: 30.6 % Ao root diam: 3.4 cm IVSd: 1.2 cm LVIDs: 2.9 cm EDV(Teich): Ao root area: LVPWd: 0.82 cm 80.4 ml 8.9 cm2 ESV(Teich): LA dimension: 2.5 cm 33.4 ml EF(Teich): 58.4 % LVLd ap4: 6.1 cm SV(MOD-sp4): EDV(MOD-sp4): 23.0 ml 34.0 ml LVLs ap4: 5.6 cm ESV(MOD-sp4): 11.0 ml EF(MOD-sp4): 67.6 % Doppler Measurements & Calculations MV E max chris: MV P1/2t max chris: Ao V2 max: LV V1 max P.4 cm/sec 142.3 cm/sec 97.7 cm/sec 3.0 mmHg MV A max chris: MV P1/2t: 43.3 msec Ao max P.8 mmHgLV V1 max: 77.0 cm/sec MVA(P1/2t): 5.1 cm2 85.9 cm/sec MV E/A: 1.6 MV dec slope: 961.9 cm/sec2 MV dec time: 0.15 sec PA V2 max: TR max chris: MV P1/2t-pr_phl: 84.4 cm/sec 231.3 cm/sec 43.3 msec PA max P.8 mmHg TR max P.4 mmHg Left Ventricle The left ventricle is normal in size. There is normal left ventricular wall thickness. No True apical 2 chamber views obtained.Hence cannot comment on the apical anterior , the basal anterior, the basal inferior and apical inferior watt.The mid anterior , the mid inferior and the rest of the LV watt contract normally. .Normal LVEF is normal and is greater than 60% in the limited views. LV diastolic function could not be adequately assessed due to atrial fibrilation. There is no thrombus. NO ASD VSD ,or PFO. Right Ventricle The right ventricle is normal in size and function. Atria The right atrium is normal. The left atrial size is normal. Mitral Valve There is no evidence of mitral valve prolapse. There is no vegetation seen on the mitral valve. There is no mitral valve stenosis. There is a mild to moderate amount of mitral regurgitation. Eccentric posteriorly directed R jet. Aortic Valve There is no aortic valvular vegetation. There is no aortic valve stenosis. There is no LVOT obstruction. No aortic regurgitation is present. Tricuspid Valve There is no tricuspid stenosis. There is a trace to mild amount of tricuspid regurgitation. No significant pulmonary hypertension.RVSP is 27 t0 32 mm of Hg , with RA claudette of 5 to 10. Pulmonic Valve There is no pulmonic valvular stenosis. There is no pulmonic valvular regurgitation. Great Vessels The aortic root is normal size. The inferior vena cava appeared normal and decreased > 50% with respiration (RAP 5-10 mmHg). Effusions There is no pericardial effusion. : ARISTIDES TSAI > Natacha Edward
[2019-02-19 05:04] LABS: HEMATOCRIT 36.2 % (36.0-47.0); HEMOGLOBIN 12.1 g/dL (12.0-15.5); MEAN CORPUSCULAR HEMOGLOBIN 30.7 pg (27.0-33.4); MEAN CORPUSCULAR HGB CONC 33.4 g/dL (32.0-36.0); MEAN CORPUSCULAR VOLUME 92 fl (80-97); PLATELET COUNT 283 10^3/uL (150-450); RED BLOOD COUNT 3.95 10^6/uL (3.72-5.28); RED CELL DISTRIBUTION WIDTH 14.2 % (11.5-14.0); WHITE BLOOD COUNT 4.6 10^3/uL (4.0-10.5)
[2019-02-19 05:25] LABS: ALANINE AMINOTRANSFERASE 18 U/L (9-52); ALBUMIN 3.4 g/dL (3.5-5.0); ALKALINE PHOSPHATASE 69 U/L (38-126); ANION GAP 8 (5-19); ASPARTATE AMINO TRANSFERASE 21 U/L (14-36); BILIRUBIN,DIRECT 0.3 mg/dL (0.0-0.4); BILIRUBIN,TOTAL 0.7 mg/dL (0.2-1.3); BLOOD UREA NITROGEN 9 mg/dL (7-20); CALCIUM 9.1 mg/dL (8.4-10.2); CARBON DIOXIDE 23 mmol/L (22-30); CHLORIDE 109 mmol/L (98-107); GLUCOSE 99 mg/dL (75-110); SODIUM 140.4 mmol/L (137-145); TOTAL PROTEIN 6.8 g/dL (6.3-8.2)
[2019-02-19] MEDS: METOPROLOL TARTRATE 25 MG TABLET PO SCH ×2 (09:36→21:51)
[2019-02-19] MEDS: APIXABAN 5 MG TABLET PO SCH ×2 (09:36→17:32)
[2019-02-19] MEDS: ASPIRIN 81 MG TABLET, CHEWABLE PO SCH (09:36)
--- NOTE | 2019-02-19 12:49 | PDOC PROGRESS REPORT ---
Subjective Progress Note for:: 02/19/19 Subjective:: ALEXANDER MENA is a 73 year old female who presented to the emergency room with a history of sudden onset of aphasia noted by her son when he saw her today having noted that she was well yesterday at 3 PM with no sign of a aphasia at that time. He noted that she was able to walk and move all of her extremities but was unable to speak and seemed to be unable to understand more complicated questions or commands. She was immediately brought to the hospital and was f ound to have an expressive aphasia and some degree of a receptive aphasia in the emergency room. CT confirmed areas of hypodensity consistent with indeterminate age infarct without evidence of any acute hemorrhage. Due to the patient's a aphasia she is unable to participate in her medical history. Her son relates that she was recently found to have atrial fibrillation by her chemistry account manager Dr. 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 02/17/2019. Neurologically unchanged. Patient was anxious and fidgety in the morning and received 1 dose of IV benzos in preparation for undergoing MRI of the brain. Patient has been somnolent but arousable with severe a aphasia. Family has been on the bedside. MRI of brain confirmed bilateral MCA infarcts. 2D carotid and MRA head were negative. Pending 2D echo. 02/18/2019. Significant improvement of her neurological symptoms. Patient is alert awake cooperative physical examination unfortunately she has severe expressive and receptive aphasia. She does follow some commands, can repeat her name and recognizes her family members around. 02/19/2019. No acute events of the night. Significant improvement of neurological symptoms, patient is alert oriented to herself, pleasant and cooperative with physical examination. She still has significant expressive and receptive aphasia mild improvement compared to yesterday, able to say her name, follows some command, denies of her family. Reason For Visit: ACUTE EMBOLIC STROKE Physical Exam Vital Signs: Temp Pulse Resp BP Pulse Ox 98.2 F 68 18 100/79 98 02/19/19 07:53 02/19/19 07:53 02/19/19 07:53 02/19/19 07:53 02/19/19 07:53 Intake & Output 02/18/19 02/19/19 02/20/19 06:59 06:59 06:59 Intake Total 1025 1122 772 Balance 1025 1122 772 Weight 62.5 kg 66.6 kg General appearance: PRESENT: no acute distress, well-developed, well-nourished Head exam: PRESENT: atraumatic, normocephalic Eye exam: PRESENT: conjunctiva pink, EOMI, PERRLA. ABSENT: scleral icterus Respiratory exam: PRESENT: clear to auscultation trista. ABSENT: rales, rhonchi, wheezes Cardiovascular exam: PRESENT: RRR. ABSENT: diastolic murmur, rubs, systolic murmur GI/Abdominal exam: PRESENT: normal bowel sounds, soft. ABSENT: distended, guar ding, mass, organolmegaly, rebound, tenderness Extremities exam: PRESENT: full ROM. ABSENT: calf tenderness, clubbing, pedal edema Neurological exam: PRESENT: alert, altered, awake, oriented to person, CN II-XII grossly intact, aphasic - Receptive and expressive. Results Laboratory Results: 02/19/19 04:26 02/19/19 04:26 02/19/19 02/19/19 04:26 04:26 WBC 4.6 RBC 3.95 Hgb 12.1 Hct 36.2 MCV 92 MCH 30.7 MCHC 33.4 RDW 14.2 H Plt Count 283 Sodium 140.4 Potassium 4.0 Chloride 109 H Carbon Dioxide 23 Anion Gap 8 BUN 9 Creatinine 0.83 Est GFR ( Amer) > 60 Est GFR (Non-Af Amer) > 60 Glucose 99 Calcium 9.1 Magnesium 1.8 Total Bilirubin 0.7 AST 21 ALT 18 Alkaline Phosphatase 69 Total Protein 6.8 Albumin 3.4 L 02/16/19 02/16/19 22:15 22:15 Creatine Kinase 94 CK-MB (CK-2) 0.36 Troponin I < 0.012 Impressions: Chest X-Ray 02/16/19 22:07 IMPRESSION: No acute cardiopulmonary process copyright 2011 [employer]- All Rights Reserved Head CT 02/16/19 22:07 IMPRESSION: Poorly defined areas of diminished attenuation in the left frontal and right posterior parietal regions, concerning for areas of age indeterminate infarct. Consider follow-up with dedicated MRI. TECHNICAL DOCUMENTATION: Quality ID # 436: Final reports with documentation of one or more dose reduction techniques (e.g., Automated exposure control, adjustment of the mA and/or kV according to patient size, use of iterative reconstruction technique) copyright 2011 [employer]- All Rights Reserved Brain MRI with MRA 02/17/19 00:00 IMPRESSION: NORMAL MRA OF THE [place]. Carotid Doppler Study 02/17/19 00:00 IMPRESSION: NO HEMODYNAMICALLY SIGNIFICANT STENOSIS. Head MRI 02/17/19 00:00 IMPRESSION: There is large acute infarction in the left frontotemporal lobe. There are smaller areas of acute infarction in the right pentecostalism lobe and right posterior parietal lobe. There is a small acute infarction in the right lobe of the cerebellum. EVIDENCE OF ACUTE STROKE: YES. Bilateral middle cerebral arteries. Right posterior cerebral artery. Assessment and Plan - Diagnosis (1) Right middle cerebral artery stroke Is this a current diagnosis for this admission?: Yes Plan: Bilateral MCA territory embolic stroke. Most likely secondary to underlying A. fib. Brain MRA/2D carotid Doppler negative for any hemodynamically significant stenosis. MRI of the brain positive for large acute infarction in the left frontotemporal lobe. There are smaller areas of acute infarction in the right pentecostalism lobe and right posterior parietal lobe. There is a small acute infarction in the right lobe of the cerebellum. Continue PT/OT/ST. Continue antiplatelets, high intensity statins, optimize blood pressure. Consult discharge planning for rehab placement. (2) Left middle cerebral artery stroke Is this a current diagnosis for this admission?: Yes Plan: Bilateral MCA territory embolic stroke. Most likely secondary to underlying A. fib. Brain MRA/2D carotid Doppler negative for any hemodynamically significant stenosis. MRI of the brain positive for large acute infarction in the left frontotemporal lobe. There are smaller areas of acute infarction in the right pentecostalism lobe and right posterior parietal lobe. There is a small acute infarction in the right lobe of the cerebellum. Continue PT/OT/ST. Continue antiplatelets, high intensity statins, optimize blood pressure. (3) HTN (hypertension) Qualifiers: Hypertension type: essential hypertension Qualified Code(s): I10 - Essential (primary) hypertension Is this a current diagnosis for this admission?: Yes Plan: Normotensive, euvolemic. DC Cardizem drip. Started beta-blockers. Adjust meds as needed. (4) Atrial fibrillation with RVR Is this a current diagnosis for this admission?: Yes Plan: Rate controlled. DC Cardizem drip. Start on beta-blockers. Continue Eliquis. Outpatient PCP and cardiology follow-up.
--- NOTE | 2019-02-19 19:31 | EKG REPORT ---
SEVERITY:- BORDERLINE ECG - SINUS RHYTHM PROBABLE LEFT ATRIAL ABNORMALITY LEFT AXIS DEVIATION BORDERLINE T WAVE ABNORMALITIES : Confirmed by: Natacha Edward MD 19-Feb-2019 19:30:56
[2019-02-19] MEDS: ATORVASTATIN CALCIUM 80 MG TABLET PO SCH (21:51)
[2019-02-20 04:08] LABS: ANION GAP 8 (5-19); BLOOD UREA NITROGEN 14 mg/dL (7-20); CALCIUM 9.3 mg/dL (8.4-10.2); CARBON DIOXIDE 26 mmol/L (22-30); CHLORIDE 105 mmol/L (98-107); GLUCOSE 97 mg/dL (75-110); POTASSIUM 4.2 mmol/L (3.6-5.0); SODIUM 138.5 mmol/L (137-145)
[2019-02-20] MEDS: ASPIRIN 81 MG TABLET, CHEWABLE PO SCH (09:25)
[2019-02-20] MEDS: APIXABAN 5 MG TABLET PO SCH ×2 (09:25→17:17)
[2019-02-20] MEDS ORDERED: METOPROLOL TARTRATE 25 MG TABLET PO SCH (10:00)
--- NOTE | 2019-02-20 11:59 | PDOC PROGRESS REPORT ---
Subjective Progress Note for:: 02/20/19 Subjective:: ALEXANDER MENA is a 73 year old female who presented to the emergency room with a history of sudden onset of aphasia noted by her son when he saw her today having noted that she was well yesterday at 3 PM with no sign of a aphasia at that time. He noted that she was able to walk and move all of her extremities but was unable to speak and seemed to be unable to understand more complicated questions or commands. She was immediately brought to the hospital and was f ound to have an expressive aphasia and some degree of a receptive aphasia in the emergency room. CT confirmed areas of hypodensity consistent with indeterminate age infarct without evidence of any acute hemorrhage. Due to the patient's a aphasia she is unable to participate in her medical history. Her son relates that she was recently found to have atrial fibrillation by her muffler mechanic Dr. 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 02/17/2019. Neurologically unchanged. Patient was anxious and fidgety in the morning and received 1 dose of IV benzos in preparation for undergoing MRI of the brain. Patient has been somnolent but arousable with severe a aphasia. Family has been on the bedside. MRI of brain confirmed bilateral MCA infarcts. 2D carotid and MRA head were negative. Pending 2D echo. 02/18/2019. Significant improvement of her neurological symptoms. Patient is alert awake cooperative physical examination unfortunately she has severe expressive and receptive aphasia. She does follow some commands, can repeat her name and recognizes her family members around. 02/19/2019. Significant improvement of her neurological symptoms. Patient is alert awake cooperative physical examination unfortunately she has severe expressive and receptive aphasia. She does follow some commands, can repeat her name and recognizes her family members around. 02/20/2019. No acute events overnight. Patient has significant improvement of her aphasia. She is alert and oriented x3. She is able to communicate however she responds very slowly. She denies any fever, chills, nausea, vomiting, diarrhea, constipation or any urinary symptoms. Blood pressure has been within normal ranges however heart rate has been very erratic she drops to below 50 and goes 120s. She is currently taking metoprolol which had to be decreased to 6.25 cannot be adequate for her blood pressure control, and switch her to Cardizem instead and see if her A. fib is better controlled. Patient can be discharged to rehab however placement is pending. Reason For Visit: ACUTE EMBOLIC STROKE Physical Exam Vital Signs: Temp Pulse Resp BP Pulse Ox 97.9 F 121 H 20 141/80 H 96 02/20/19 07:44 02/20/19 07:44 02/20/19 07:44 02/20/19 07:44 02/20/19 07:44 Intake & Output 02/19/19 02/20/19 02/21/19 06:59 06:59 06:59 Intake Total 1122 1322 Balance 1122 1322 Weight 66.6 kg 67.5 kg General appearance: PRESENT: no acute distress, well-developed, well-nourished Head exam: PRESENT: atraumatic, normocephalic Neck exam: ABSENT: carotid bruit, JVD, lymphadenopathy, thyromegaly Respiratory exam: PRESENT: clear to auscultation trista. ABSENT: rales, rhonchi, wheezes Cardiovascular exam: PRESENT: irregular rhythm. ABSENT: diastolic murmur, rubs, systolic murmur GI/Abdominal exam: PRESENT: normal bowel sounds, soft. ABSENT: distended, guarding, mass, organolmegaly, rebound, tenderness Neurological exam: PRESENT: alert, awake, oriented to person, oriented to place, oriented to time, oriented to situation, CN II-XII grossly intact, aphasic. ABSENT: motor sensory deficit Results Laboratory Results: 02/19/19 04:26 02/20/19 03:25 02/20/19 03:25 Sodium 138.5 Potassium 4.2 Chloride 105 Carbon Dioxide 26 Anion Gap 8 BUN 14 Creatinine 0.98 Est GFR ( Amer) > 60 Est GFR (Non-Af Amer) 56 L Glucose 97 Calcium 9.3 Magnesium 1.9 02/16/19 02/16/19 22:15 22:15 Creatine Kinase 94 CK-MB (CK-2) 0.36 Troponin I < 0.012 Impressions: Chest X-Ray 02/16/19 22:07 IMPRESSION: No acute cardiopulmonary process copyright 2011 [employer]- All Rights Reserved Head CT 02/16/19 22:07 IMPRESSION: Poorly defined areas of diminished attenuation in the left frontal and right posterior parietal regions, concerning for areas of age indeterminate infarct. Consider follow-up with dedicated MRI. TECHNICAL DOCUMENTATION: Quality ID # 436: Final reports with documentation of one or more dose reduction techniques (e.g., Automated exposure control, adjustment of the mA and/or kV according to patient size, use of iterative reconstruction technique) copyright 2011 [employer]- All Rights Reserved Brain MRI with MRA 02/17/19 00:00 IMPRESSION: NORMAL MRA OF THE [place] OF [place]. Carotid Doppler Study 02/17/19 00:00 IMPRESSION: NO HEMODYNAMICALLY SIGNIFICANT STENOSIS. Head MRI 02/17/19 00:00 IMPRESSION: There is large acute infarction in the left frontotemporal lobe. There are smaller areas of acute infarction in the right [place] lobe and right posterior parietal lobe. There is a small acute infarction in the right lobe of the cerebellum. EVIDENCE OF ACUTE STROKE: YES. Bilateral middle cerebral arteries. Right posterior cerebral artery. Assessment and Plan - Diagnosis (1) Right middle cerebral artery stroke Is this a current diagnosis for this admission?: Yes Plan: Bilateral MCA territory embolic stroke. Most likely secondary to underlying A. fib. Brain MRA/2D carotid Doppler negative for any hemodynamically significant stenosis. MRI of the brain positive for large acute infarction in the left frontotemporal lobe. There are smaller areas of acute infarction in the right [place] lobe and right posterior parietal lobe. There is a small acute infarction in the right lobe of the cerebellum. Continue PT/OT/ST. Continue antiplatelets, high intensity statins, optimize blood pressure. Consult discharge planning for rehab placement. (2) Left middle cerebral artery stroke Is this a current diagnosis for this admission?: Yes Plan: Bilateral MCA territory embolic stroke. Most likely secondary to underlying A. fib. Brain MRA/2D carotid Doppler negative for any hemodynamically significant stenosis. MRI of the brain positive for large acute infarction in the left frontotemporal lobe. There are smaller areas of acute infarction in the right [place] lobe and right posterior parietal lobe. There is a small acute infarction in the right lobe of the cerebellum. Continue PT/OT/ST. Continue antiplatelets, high intensity statins, optimize blood pressure. (3) HTN (hypertension) Qualifiers: Hypertension type: essential hypertension Qualified Code(s): I10 - Essential (primary) hypertension Is this a current diagnosis for this admission?: Yes Plan: Normotensive, euvolemic. DC Cardizem drip. Stop beta-blockers switch to Cardizem PO. . Adjust meds as needed. (4) Atrial fibrillation with RVR Is this a current diagnosis for this admission?: Yes Plan: Rate controlled. With patient having erratic heart rates on beta-blockers. She drops to below 50s and goes up to 120s. DC Cardizem drip. Switch to Cardizem p.o. Will adjust oxygen as needed. \ Continue Eliquis. Outpatient PCP and cardiology follow-up.
[2019-02-20] MEDS: DILTIAZEM HCL 30 MG TABLET PO SCH ×2 (13:12→21:34)
[2019-02-20] MEDS: ATORVASTATIN CALCIUM 80 MG TABLET PO SCH (21:34)
[2019-02-21] MEDS: DILTIAZEM HCL 30 MG TABLET PO SCH (05:42)
[2019-02-21] MEDS: DILTIAZEM HCL 120 MG CAP.SR.24H PO SCH (09:19)
[2019-02-21] MEDS: ASPIRIN 81 MG TABLET, CHEWABLE PO SCH (09:19)
[2019-02-21] MEDS: APIXABAN 5 MG TABLET PO SCH ×2 (09:19→17:20)
--- NOTE | 2019-02-21 09:46 | PDOC PROGRESS REPORT ---
Subjective Progress Note for:: 02/21/19 Subjective:: ALEXANDER MENA is a 73 year old female who presented to the emergency room with a history of sudden onset of aphasia noted by her son when he saw her today having noted that she was well yesterday at 3 PM with no sign of a aphasia at that time. He noted that she was able to walk and move all of her extremities but was unable to speak and seemed to be unable to understand more complicated questions or commands. She was immediately brought to the hospital and was f ound to have an expressive aphasia and some degree of a receptive aphasia in the emergency room. CT confirmed areas of hypodensity consistent with indeterminate age infarct without evidence of any acute hemorrhage. Due to the patient's a aphasia she is unable to participate in her medical history. Her son relates that she was recently found to have atrial fibrillation by her rv service technician Dr. 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 02/17/2019. Neurologically unchanged. Patient was anxious and fidgety in the morning and received 1 dose of IV benzos in preparation for undergoing MRI of the brain. Patient has been somnolent but arousable with severe a aphasia. Family has been on the bedside. MRI of brain confirmed bilateral MCA infarcts. 2D carotid and MRA head were negative. Pending 2D echo. 02/18/2019. Significant improvement of her neurological symptoms. Patient is alert awake cooperative physical examination unfortunately she has severe expressive and receptive aphasia. She does follow some commands, can repeat her name and recognizes her family members around. 02/19/2019. Significant improvement of her neurological symptoms. Patient is alert awake cooperative physical examination unfortunately she has severe expressive and receptive aphasia. She does follow some commands, can repeat her name and recognizes her family members around. 02/20/2019. No acute events overnight. Patient has significant improvement of her aphasia. She is alert and oriented x3. She is able to communicate however she responds very slowly. She denies any fever, chills, nausea, vomiting, diarrhea, constipation or any urinary symptoms. Blood pressure has been within normal ranges however heart rate has been very erratic she drops to below 50 and goes 120s. She is currently taking metoprolol which had to be decreased to 6.25 cannot be adequate for her blood pressure control, and switch her to Cardizem instead and see if her A. fib is better controlled. Patient can be discharged to rehab however placement is pending. 12/24/2018. No acute events overnight. Patient was able to ambulate with the help of physical therapy. Alert oriented x3. Mild improvement of her aphasia, denies any fever, chills, nausea, vomiting, diarrhea, constipation or any urinary symptoms. Pending rehab placement. Reason For Visit: ACUTE EMBOLIC STROKE Physical Exam Vital Signs: Temp Pulse Resp BP Pulse Ox 98.5 F 59 L 21 H 123/69 98 02/21/19 03:34 02/21/19 07:00 02/21/19 03:34 02/21/19 03:34 02/21/19 03:34 Intake & Output 02/20/19 02/21/19 02/22/19 06:59 06:59 06:59 Intake Total 1322 495 Balance 1322 495 Weight 67.5 kg 66.4 kg General appearance: PRESENT: no acute distress, well-developed, well-nourished Head exam: PRESENT: atraumatic, normocephalic Eye exam: PRESENT: conjunctiva pink, EOMI, PERRLA. ABSENT: scleral icterus Ear exam: PRESENT: normal external ear exam Mouth exam: PRESENT: moist, tongue midline Neck exam: ABSENT: carotid bruit, JVD, lymphadenopathy, thyromegaly Respiratory exam: PRESENT: clear to auscultation trista. ABSENT: rales, rhonchi, wheezes Cardiovascular exam: PRESENT: RRR. ABSENT: diastolic murmur, rubs, systolic murmur Pulses: PRESENT: normal dorsalis pedis pul Vascular exam: PRESENT: normal capillary refill GI/Abdominal exam: PRESENT: normal bowel sounds, soft. ABSENT: distended, guarding, mass, organolmegaly, rebound, tenderness Rectal exam: PRESENT: deferred Extremities exam: PRESENT: full ROM. ABSENT: calf tenderness, clubbing, pedal edema Neurological exam: PRESENT: alert, awake, oriented to person, oriented to place, oriented to time, oriented to situation, CN II-XII grossly intact, aphasic. ABSENT: motor sensory deficit Psychiatric exam: PRESENT: appropriate affect, normal mood. ABSENT: homicidal ideation, suicidal ideation Skin exam: PRESENT: dry, intact, warm. ABSENT: cyanosis, rash Results Laboratory Results: 02/19/19 04:26 02/20/19 03:25 02/16/19 02/16/19 22:15 22:15 Creatine Kinase 94 CK-MB (CK-2) 0.36 Troponin I < 0.012 Impressions: Chest X-Ray 02/16/19 22:07 IMPRESSION: No acute cardiopulmonary process copyright 2010 [employer]- All Rights Reserved Head CT 02/16/19 22:07 IMPRESSION: Poorly defined areas of diminished attenuation in the left frontal and right posterior parietal regions, concerning for areas of age indeterminate infarct. Consider follow-up with dedicated MRI. TECHNICAL DOCUMENTATION: Quality ID # 436: Final reports with documentation of one or more dose reduction techniques (e.g., Automated exposure control, adjustment of the mA and/or kV according to patient size, use of iterative reconstruction technique) copyright 2010 [employer]- All Rights Reserved Brain MRI with MRA 02/17/19 00:00 IMPRESSION: NORMAL MRA OF THE [place] OF [place]. Carotid Doppler Study 02/17/19 00:00 IMPRESSION: NO HEMODYNAMICALLY SIGNIFICANT STENOSIS. Head MRI 02/17/19 00:00 IMPRESSION: There is large acute infarction in the left frontotemporal lobe. There are smaller areas of acute infarction in the right [place] lobe and right posterior parietal lobe. There is a small acute infarction in the right lobe of the cerebellum. EVIDENCE OF ACUTE STROKE: YES. Bilateral middle cerebral arteries. Right posterior cerebral artery. Assessment and Plan - Diagnosis (1) Right middle cerebral artery stroke Is this a current diagnosis for this admission?: Yes Plan: Bilateral MCA territory embolic stroke. Most likely secondary to underlying A. fib. Brain MRA/2D carotid Doppler negative for any hemodynamically significant stenosis. MRI of the brain positive for large acute infarction in the left frontotemporal lobe. There are smaller areas of acute infarction in the right [place] lobe and right posterior parietal lobe. There is a small acute infarction in the right lobe of the cerebellum. Continue PT/OT/ST. Continue antiplatelets, high intensity statins, optimize blood pressure. Consult discharge planning for rehab placement. (2) Left middle cerebral artery stroke Is this a current diagnosis for this admission?: Yes Plan: Bilateral MCA territory embolic stroke. Most likely secondary to underlying A. fib. Brain MRA/2D carotid Doppler negative for any hemodynamically significant stenosis. MRI of the brain positive for large acute infarction in the left frontotemporal lobe. There are smaller areas of acute infarction in the right [place] lobe and right posterior parietal lobe. There is a small acute infarction in the right lobe of the cerebellum. Continue PT/OT/ST. Continue antiplatelets, high intensity statins, optimize blood pressure. (3) HTN (hypertension) Qualifiers: Hypertension type: essential hypertension Qualified Code(s): I10 - E ssential (primary) hypertension Is this a current diagnosis for this admission?: Yes Plan: Normotensive, euvolemic. DC Cardizem drip. Stop beta-blockers switch to Cardizem PO. . Adjust meds as needed. (4) Atrial fibrillation with RVR Is this a current diagnosis for this admission?: Yes Plan: [id number] Score 5. Rate and rhythm controlled. TSH within normal limits. Continue calcium channel blockers and anticoagulants. Patient having erratic heart rates on beta-blockers. She drops to below 50s and goes up to 120s. DC Cardizem drip. Switch metoprolol with Cardizem as patient responding better with Cardizem. Adjust dosage as needed. Outpatient PCP and cardiology follow-up.
[2019-02-21] MEDS: ATORVASTATIN CALCIUM 80 MG TABLET PO SCH (21:29)
--- NOTE | 2019-02-22 07:14 | EKG REPORT ---
SEVERITY:- ABNORMAL ECG - JUNCTIONAL TACHYCARDIA LEFT AXIS DEVIATION CONSIDER INFERIOR INFARCT ABNORMAL T, CONSIDER ISCHEMIA, LATERAL LEADS PROLONGED QT INTERVAL : Confirmed by: Espinoza Vazquez MD 22-Feb-2019 07:14:00
[2019-02-22] MEDS ORDERED: DILTIAZEM HCL 60 MG TABLET PO ONE (10:15)
[2019-02-22] MEDS: ASPIRIN 81 MG TABLET, CHEWABLE PO SCH (10:22)
[2019-02-22] MEDS: APIXABAN 5 MG TABLET PO SCH ×2 (10:22→17:51)
[2019-02-22] MEDS: DILTIAZEM HCL 120 MG CAP.SR.24H PO SCH (10:27)
--- NOTE | 2019-02-22 13:32 | PDOC PROGRESS REPORT ---
Subjective Progress Note for:: 02/22/19 Subjective:: ALEXANDER MENA is a 73 year old female who presented to the emergency room with a history of sudden onset of aphasia noted by her son when he saw her today having noted that she was well yesterday at 3 PM with no sign of a aphasia at that time. He noted that she was able to walk and move all of her extremities but was unable to speak and seemed to be unable to understand more complicated questions or commands. She was immediately brought to the hospital and was f ound to have an expressive aphasia and some degree of a receptive aphasia in the emergency room. CT confirmed areas of hypodensity consistent with indeterminate age infarct without evidence of any acute hemorrhage. Due to the patient's a aphasia she is unable to participate in her medical history. Her son relates that she was recently found to have atrial fibrillation by her processing assistant Dr. 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 02/17/2019. Neurologically unchanged. Patient was anxious and fidgety in the morning and received 1 dose of IV benzos in preparation for undergoing MRI of the brain. Patient has been somnolent but arousable with severe a aphasia. Family has been on the bedside. MRI of brain confirmed bilateral MCA infarcts. 2D carotid and MRA head were negative. Pending 2D echo. 02/18/2019. Significant improvement of her neurological symptoms. Patient is alert awake cooperative physical examination unfortunately she has severe expressive and receptive aphasia. She does follow some commands, can repeat her name and recognizes her family members around. 02/19/2019. Significant improvement of her neurological symptoms. Patient is alert awake cooperative physical examination unfortunately she has severe expressive and receptive aphasia. She does follow some commands, can repeat her name and recognizes her family members around. 02/20/2019. No acute events overnight. Patient has significant improvement of her aphasia. She is alert and oriented x3. She is able to communicate however she responds very slowly. She denies any fever, chills, nausea, vomiting, diarrhea, constipation or any urinary symptoms. Blood pressure has been within normal ranges however heart rate has been very erratic she drops to below 50 and goes 120s. She is currently taking metoprolol which had to be decreased to 6.25 cannot be adequate for her blood pressure control, and switch her to Cardizem instead and see if her A. fib is better controlled. Patient can be discharged to rehab however placement is pending. 12/24/2018. No acute events overnight. Patient was able to ambulate with the help of physical therapy. Alert oriented x3. Mild improvement of her aphasia, denies any fever, chills, nausea, vomiting, diarrhea, constipation or any urinary symptoms. Pending rehab placement. 02/22/2019. No acute events overnight. Patient is ambulatory, however normal bladder and bowel function. Her aphasia is improving however still not back to baseline. Denies any fever, chills, nausea, vomiting, diarrhea, constipation, numbness, tingling, weakness. Pending placement to rehab. Reason For Visit: ACUTE EMBOLIC STROKE Physical Exam Vital Signs: Temp Pulse Resp BP Pulse Ox 98.5 F 115 H 16 125/77 97 02/22/19 07:51 02/22/19 11:38 02/22/19 11:38 02/22/19 11:38 02/22/19 11:38 Intake & Output 02/21/19 02/22/19 02/23/19 06:59 06:59 06:59 Intake Total 495 1220 236 Balance 495 1220 236 Weight 66.4 kg 67 kg General appearance: PRESENT: no acute distress, well-developed, well-nourished Head exam: PRESENT: atraumatic, normocephalic Eye exam: PRESENT: conjunctiva pink, EOMI, PERRLA. ABSENT: scleral icterus Ear exam: PRESENT: normal external ear exam Mouth exam: PRESENT: moist, tongue midline Neck exam: ABSENT: carotid bruit, JVD, lymphadenopathy, thyromegaly Respiratory exam: PRESENT: clear to auscultation trista. ABSENT: rales, rhonchi, wheezes Cardiovascular exam: PRESENT: RRR. ABSENT: diastolic murmur, rubs, systolic murmur Pulses: PRESENT: normal dorsalis pedis pul Vascular exam: PRESENT: normal capillary refill GI/Abdominal exam: PRESENT: normal bowel sounds, soft. ABSENT: distended, guarding, mass, organolmegaly, rebound, tenderness Rectal exam: PRESENT: deferred Extremities exam: PRESENT: full ROM. ABSENT: calf tenderness, clubbing, pedal edema Neurological exam: PRESENT: alert, awake, oriented to person, oriented to place, oriented to time, oriented to situation, CN II-XII grossly intact, aphasic. ABSENT: motor sensory deficit Psychiatric exam: PRESENT: appropriate affect, normal mood. ABSENT: homicidal ideation, suicidal ideation Skin exam: PRESENT: dry, intact, warm. ABSENT: cyanosis, rash Results Laboratory Results: 02/19/19 04:26 02/20/19 03:25 02/16/19 02/16/19 22:15 22:15 Creatine Kinase 94 CK-MB (CK-2) 0.36 Troponin I < 0.012 Impressions: Chest X-Ray 02/16/19 22:07 IMPRESSION: No acute cardiopulmonary process copyright 2010 [employer]- All Rights Reserved Head CT 02/16/19 22:07 IMPRESSION: Poorly defined areas of diminished attenuation in the left frontal and right posterior parietal regions, concerning for areas of age indeterminate infarct. Consider follow-up with dedicated MRI. TECHNICAL DOCUMENTATION: Quality ID # 436: Final reports with documentation of one or more dose reduction techniques (e.g., Automated exposure control, adjustment of the mA and/or kV according to patient size, use of iterative reconstruction technique) copyright 2010 [employer]- All Rights Reserved Brain MRI with MRA 02/17/19 00:00 IMPRESSION: NORMAL MRA OF THE [place]. Carotid Doppler Study 02/17/19 00:00 IMPRESSION: NO HEMODYNAMICALLY SIGNIFICANT STENOSIS. Head MRI 02/17/19 00:00 IMPRESSION: There is large acute infarction in the left frontotemporal lobe. There are smaller areas of acute infarction in the right religion lobe and right posterior parietal lobe. There is a small acute infarction in the right lobe of the cerebellum. EVIDENCE OF ACUTE STROKE: YES. Bilateral middle cerebral arteries. Right posterior cerebral artery. Assessment and Plan - Diagnosis (1) Right middle cerebral artery stroke Is this a current diagnosis for this admission?: Yes Plan: Bilateral MCA territory embolic stroke. Most likely secondary to underlying A. fib. Brain MRA/2D carotid Doppler negative for any hemodynamically significant stenosis. MRI of the brain positive for large acute infarction in the left frontotemporal lobe. There are smaller areas of acute infarction in the right religion lobe and right posterior parietal lobe. There is a small acute infarction in the right lobe of the cerebellum. Continue PT/OT/ST. Continue antiplatelets, high intensity statins, optimize blood pressure. Consult discharge planning for rehab placement. (2) Left middle cerebral artery stroke Is this a current diagnosis for this admission?: Yes Plan: Bilateral MCA territory embolic stroke. Most likely secondary to underlying A. fib. Brain MRA/2D carotid Doppler negative for any hemodynamically significant stenosis. MRI of the brain positive for large acute infarction in the left frontotemporal lobe. There are smaller areas of acute infarction in the right religion lobe and right posterior parietal lobe. There is a small acute infarction in the right lobe of the cerebellum. Continue PT/OT/ST. Continue antiplatelets, high intensity statins, optimize blood pressure. (3) HTN (hypertension) Qualifiers: Hypertension type: essential hypertension Qualified Code(s): I10 - Essential (primary) hypertension Is this a current diagnosis for this admission?: Yes Plan: Normotensive, euvolemic. DC Cardizem drip. Stop beta-blockers switch to Cardizem PO. . Adjust meds as needed. (4) Atrial fibrillation with RVR Is this a current diagnosis for this admission?: Yes Plan: [id number] Score 5. Rate and rhythm controlled. TSH within normal limits. Continue calcium channel blockers and anticoagulants. 02/18/2019. 2D echo no source no obvious cardiac source of embolus noted on TTE. Left ventricular ejection fraction normal. Off of Cardizem drip. Patient having erratic heart rates on beta-blockers. She drops to below 50s and goes up to 120s. She was switched to short acting Cardizem with good rate control however when switched to Cardizem DS erratic heart rate again. Switch to Cardizem p.o. short-acting 3 times daily. She and family were educated about the need of close follow-up with PCP and cardiology for readjustment of her medications. Adjust dosage as needed. Outpatient PCP and cardiology follow-up.
[2019-02-22] MEDS: DILTIAZEM HCL 60 MG TABLET PO SCH ×2 (15:13→22:20)
[2019-02-22] MEDS: ATORVASTATIN CALCIUM 80 MG TABLET PO SCH (22:20)
[2019-02-23] MEDS: DILTIAZEM HCL 60 MG TABLET PO SCH ×4 (05:11→23:12)
[2019-02-23] MEDS: ASPIRIN 81 MG TABLET, CHEWABLE PO SCH (09:26)
[2019-02-23] MEDS: APIXABAN 5 MG TABLET PO SCH ×2 (09:26→17:45)
--- NOTE | 2019-02-23 12:11 | PDOC CONSULTATION ---
Consultation Consult Date: 02/23/19 Consult reason:: Evaluation for admission to acute inpatient rehabilitation History of Present Illness Admission Date/PCP: 02/16/19 23:39 HALLEY CASTAÑEDA Patient complains of: Difficulty speaking History of Present Illness: ALEXANDER LYN is a 73-year-old left-handed female with past medical history of recently diagnosed atrial fibrillation, hypertension, asthma, COPD, and chronic tobacco abuse admitted to [facility] on 02/16/2018 after presenting with sudden onset of aphasia with last known well time at 3 PM the day before. 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 MRA of the brain demonstrated normal [place], and carotid duplex demonstrated no hemodynamically significant stenosis. Echocardiogram demonstrated no obvious cardiac source of embolus with normal LVEF. Of note, the patient was recently diagnosed with atrial fibrillation but had not yet started on anticoagulation. Laboratory studies demonstrated total cholesterol of 178 and LDL of 122. The patient has now been started on Eliquis 5 mg twice daily, aspirin 81 mg daily, and atorvastatin 80 mg nightly for secondary stroke prophylaxis. Physical medicine and rehabilitation consultation was requested to evaluate the patient for admission to acute inpatient rehabilitation. Today, the patient was seen and examined with her family at bedside. She complains of some difficulty with communication. Her last bowel movement was yesterday, and she denies trouble with urination. Past Medical History Cardiac Medical History: Reports: Atrial Fibrillation, Hypertension Denies: Myocardial Infarction Pulmonary Medical History: Denies: Asthma, Chronic Obstructive Pulmonary Disease (COPD) EENT Medical History: Reports: Eyes - Wears corrective lenses Denies: Cataracts Neurological Medical History: Denies: Hemorrhagic CVA, Ischemic CVA, Seizures Endocrine Medical History: Denies: Diabetes Mellitus Type 1, Diabetes Mellitus Type 2, Hyperthyroidism, Hypothyroidism Renal/ Medical History: Denies: Chronic Kidney Disease, Nephrolithiasis Malignancy Medical History: Reports: None GI Medical History: Denies: Cirrhosis, Hepatitis Musculoskeltal Medical History: Denies: Arthritis, Gout Skin Medical History: Denies: Eczema, Psoriasis Psychiatric Medical History: Denies: Alcohol Dependency, Substance Abuse, Tobacco Dependency Traumatic Medical History: Reports: None Hematology: Denies: Anemia, Bleeding Tendencies Infectious Medical History: Reports: None Past Surgical History Past Surgical History: Reports: None Social History Lives with: Alone Smoking Status: Never Smoker Number of Years Smokin Frequency of Alcohol Use: None Hx Recreational Drug Use: No Drugs: None Hx Prescription Drug Abuse: No Past Social History Note: Alexander Lyn lives with her grandson in a 1 level home with 0 steps to enter (ramp) and 0 steps to the bedroom and bathroom. He admits to smoking 2 packs/day for many decades and denies alcohol or drug use. Prior Functional Status: Active and independent with mobility and all ADLs. Ambulates without an assist device. Current Functional Status: Per therapy notes, the patient is independent for bed mobility and transfers and requires standby assistance regulation of 150 feet without assistive device. She is also independent for lower body dressing and has been discharged from acute care occupational therapy. She is evaluated by speech therapy and recommended a regular solids with thin liquids diet but does require continued speech therapy for communication deficits. - Advance Directive Resuscitation Status: Full Code Family History Family History: Reviewed & Not Pertinent Parental Family History Reviewed: Yes Children Family History Reviewed: Yes Sibling(s) Family History Reviewed.: Yes Medication/Allergy Home Medications: Metoprolol Tartrate [Lopressor 25 mg Tablet] 25 mg PO BID 02/17/19 Propafenone HCl [Propafenone HCl ER] 225 mg PO BID 02/17/19 Allergies/Adverse Reactions: No Known Drug Allergies Allergy (Verified 02/17/19 08:23) Review of Systems Review of Systems: Constitutional: No fevers, chills, sweats, weight loss Eye: No recent visual problems, no blurry vision, no double vision ENMT: No ear pain, nasal congestion, sore throat Respiratory: No shortness of breath, cough, sputum production Cardiovascular: No chest pain, palpitations, syncope Gastrointestinal: No nausea, vomiting, diarrhea, abdominal pain Genitourinary: No hematuria, dysuria, flank or suprapubic pain [place]/Lymph: Negative for bruising tendency, swollen lymph glands Endocrine: Negative for excessive thirst, excessive hunger, extreme fatigue Musculoskeletal: No back pain, neck pain, joint pain, muscle pain, decreased range of motion Integumentary: No rash, pruritus, abrasions Neurologic: Positive for speech problems. No focal weakness or headaches. Psychiatric: No anxiety, depression Physical Exam Vital Signs: Temp Pulse Resp BP Pulse Ox 98.0 F 106 H 16 111/63 98 02/23/19 08:16 02/23/19 08:16 02/23/19 08:16 02/23/19 08:16 02/23/19 08:16 Intake & Output 02/22/19 02/23/19 02/24/19 06:59 06:59 06:59 Intake Total 1220 708 Balance 1220 708 Weight 67 kg 66.5 kg Exam: General: Awake and Alert. No acute distress. Resting comfortably in bed with her family at bedside. Head: Normocephalic. Atraumatic. Eyes: Pupils equal, round, and reactive to light. EOMI. Sclera white. Ears: No drainage noted. Nose: Nares normal & without exudate. Oropharynx: Moist mucous membranes. Dentures in place. Neck: Supple movements. Cardiovascular: Appears to be regular rate & rhythm. Pulmonary: Lungs clear to auscultation bilaterally. No increased work of breathing. Gastrointestinal: Abdomen soft, non-tender, non-distended. Normoactive bowel sounds. Skin: Texture and turgor normal. Warm and dry. Psychiatric: The patient is oriented to self, location, and situation. She did look at the board to figure out what date it is. Affect is pleasant and appropriate. Extremities: Arthritic changes of the hands and feet are noted. Neurological: CN III-XII grossly intact. Sensation to light touch is grossly intact. Tone is normal. Speech is mildly to moderately aphasic but without dysarthria. Muscle Strength: Full 5/5 strength in all major muscle groups of the 4 e xtremities. Results Laboratory Results: 02/19/19 04:26 02/20/19 03:25 02/16/19 02/16/19 22:15 22:15 Creatine Kinase 94 CK-MB (CK-2) 0.36 Troponin I < 0.012 Impressions: Chest X-Ray 02/16/19 22:07 IMPRESSION: No acute cardiopulmonary process copyright 2011 [employer]- All Rights Reserved Head CT 02/16/19 22:07 IMPRESSION: Poorly defined areas of diminished attenuation in the left frontal and right posterior parietal regions, concerning for areas of age indeterminate infarct. Consider follow-up with dedicated MRI. TECHNICAL DOCUMENTATION: Quality ID # 436: Final reports with documentation of one or more dose reduction techniques (e.g., Automated exposure control, adjustment of the mA and/or kV according to patient size, use of iterative reconstruction technique) copyright 2011 [employer]- All Rights Reserved Brain MRI with MRA 02/17/19 00:00 IMPRESSION: NORMAL MRA OF THE [place]. Carotid Doppler Study 02/17/19 00:00 IMPRESSION: NO HEMODYNAMICALLY SIGNIFICANT STENOSIS. Head MRI 02/17/19 00:00 IMPRESSION: There is large acute infarction in the left frontotemporal lobe. There are smaller areas of acute infarction in the right [place] lobe and right posterior parietal lobe. There is a small acute infarction in the right lobe of the cerebellum. EVIDENCE OF ACUTE STROKE: YES. Bilateral middle cerebral arteries. Right posterior cerebral artery. Assessment and Plan - Plan Summary Plan Summary: 73-year-old female with CVA resulting in aphasia. 1. Gait and ADL Dysfunction secondary to CVA without hemiparesis. - She has been discharged from acute care occupational therapy and will likely be discharged from acute care physical therapy in the near future. 2. CVA without hemiparesis - Needs continued PT & OT & HOLIST[employer] PULSER to maximize functional mobility, safety and self-care as well as communication needs & swallow function. Risk Factor Modification: - Hypertension: Dietary and activity modifications, avoid hypotension and hypertension - Glycemic Control: Consider checking hemoglobin A1c, continue dietary and ac tivity modifications, avoid hyperglycemia and hypoglycemia - Lipids: LDL is 122, continue dietary and activity modifications, continue statin - Smoking: Discussed smoking cessation - Alcohol: The patient does not drink alcohol - Antiplatelet: Continue aspirin 81 mg daily - Cardioembolic Event: The patient appears to have paroxysmal atrial fibrillation and is now started on Eliquis anticoagulation. - Vascular: No hemodynamically significant stenosis on carotid duplex. Dysphagia: - Bedside swallow evaluation completed. - Continue regular solids with thin liquids diet. VTE Prophylaxis: - She is fully anticoagulated with Eliquis 5 mg twice daily Risk of Spasticity: - Continue ROM, positioning. - She does not have increased tone. Risk of Constipation: - Continue dietary modifications and encourage fluid intake. - Bowel protocol. Risk of Neurogenic Bladder/UTI: - Monitor for retention, incontinence, UTI. 3. Paroxysmal atrial fibrillation - Continue anticoagulation with Eliquis and rate control with metoprolol per hospitalist medicine 4. Hypertension - Continue management per hospitalist medicine 5. Disposition - Based on the patient's diagnosis, medical co-morbidities, and current functional status, she is not a candidate for Acute Inpatient Rehabilitation as she does not meet criteria for 3 hours/day of intensive therapies and at least 2 disciplines. In fact, the patient is doing quite well functionally. Recommend discharge home with outpatient speech therapy and supervision and assistance from her family when she is medically ready for discharge. This case was discussed with the patient's acute care therapists and nurse on the floor. Thank you for allowing us to participate in the care of this patient. Please call with any questions. A total of 60 minutes was spent on [id number] communication with the patient and coordination of care.
--- NOTE | 2019-02-23 16:00 | PDOC PROGRESS REPORT ---
Subjective Progress Note for:: 02/23/19 Subjective:: ALEXANDER MENA is a 73 year old female who presented to the emergency room with a history of sudden onset of aphasia noted by her son when he saw her today having noted that she was well yesterday at 3 PM with no sign of a aphasia at that time. He noted that she was able to walk and move all of her extremities but was unable to speak and seemed to be unable to understand more complicated questions or commands. She was immediately brought to the hospital and was f ound to have an expressive aphasia and some degree of a receptive aphasia in the emergency room. CT confirmed areas of hypodensity consistent with indeterminate age infarct without evidence of any acute hemorrhage. Due to the patient's a aphasia she is unable to participate in her medical history. Her son relates that she was recently found to have atrial fibrillation by her brake mechanic Dr. 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 02/17/2019. Neurologically unchanged. Patient was anxious and fidgety in the morning and received 1 dose of IV benzos in preparation for undergoing MRI of the brain. Patient has been somnolent but arousable with severe a aphasia. Family has been on the bedside. MRI of brain confirmed bilateral MCA infarcts. 2D carotid and MRA head were negative. Pending 2D echo. 02/18/2019. Significant improvement of her neurological symptoms. Patient is alert awake cooperative physical examination unfortunately she has severe expressive and receptive aphasia. She does follow some commands, can repeat her name and recognizes her family members around. 02/19/2019. Significant improvement of her neurological symptoms. Patient is alert awake cooperative physical examination unfortunately she has severe expressive and receptive aphasia. She does follow some commands, can repeat her name and recognizes her family members around. 02/20/2019. No acute events overnight. Patient has significant improvement of her aphasia. She is alert and oriented x3. She is able to communicate however she responds very slowly. She denies any fever, chills, nausea, vomiting, diarrhea, constipation or any urinary symptoms. Blood pressure has been within normal ranges however heart rate has been very erratic she drops to below 50 and goes 120s. She is currently taking metoprolol which had to be decreased to 6.25 cannot be adequate for her blood pressure control, and switch her to Cardizem instead and see if her A. fib is better controlled. Patient can be discharged to rehab however placement is pending. 12/24/2018. No acute events overnight. Patient was able to ambulate with the help of physical therapy. Alert oriented x3. Mild improvement of her aphasia, denies any fever, chills, nausea, vomiting, diarrhea, constipation or any urinary symptoms. Pending rehab placement. 02/22/2019. No acute events overnight. Patient is ambulatory, however normal bladder and bowel function. Her aphasia is improving however still not back to baseline. Denies any fever, chills, nausea, vomiting, diarrhea, constipation, numbness, tingling, weakness. Pending placement to rehab. 02/23/2019. No acute events overnight. Patient is ambulatory, having normal bowel and bladder function. Aphasia is improving. Patient was evaluated by acute rehab however did not qualify for inpatient acute rehab admission. Recommendation is to discharge home with outpatient speech and occupational therapy. Patient heart rate is still erratic and controlled. Coronary from cardiology has been consulted for recommendation on medication to consideration about her A. fib. She can be sent home once that recommendation has been received. Reason For Visit: ACUTE EMBOLIC STROKE Physical Exam Vital Signs: Temp Pulse Resp BP Pulse Ox 97.9 F 67 16 116/71 99 02/23/19 14:51 02/23/19 14:51 02/23/19 14:51 02/23/19 14:51 02/23/19 14:51 Intake & Output 02/22/19 02/23/19 02/24/19 06:59 06:59 06:59 Intake Total 1220 708 650 Balance 1220 708 650 Weight 67 kg 66.5 kg General appearance: PRESENT: no acute distress, well-developed, well-nourished Head exam: PRESENT: atraumatic, normocephalic Eye exam: PRESENT: conjunctiva pink, EOMI, PERRLA. ABSENT: scleral icterus Ear exam: PRESENT: normal external ear exam Mouth exam: PRESENT: moist, tongue midline Neck exam: ABSENT: carotid bruit, JVD, lymphadenopathy, thyromegaly Respiratory exam: PRESENT: clear to auscultation trista. ABSENT: rales, rhonchi, wheezes Cardiovascular exam: PRESENT: RRR. ABSENT: diastolic murmur, rubs, systolic murmur Pulses: PRESENT: normal dorsalis pedis pul Vascular exam: PRESENT: normal capillary refill GI/Abdominal exam: PRESENT: normal bowel sounds, soft. ABSENT: distended, guarding, mass, organolmegaly, rebound, tenderness Rectal exam: PRESENT: deferred Extremities exam: PRESENT: full ROM. ABSENT: calf tenderness, clubbing, pedal edema Neurological exam: PRESENT: alert, awake, oriented to person, oriented to place, oriented to time, oriented to situation, CN II-XII grossly intact, aphasic. ABSENT: motor sensory deficit Psychiatric exam: PRESENT: appropriate affect, normal mood. ABSENT: homicidal ideation, suicidal ideation Skin exam: PRESENT: dry, intact, warm. ABSENT: cyanosis, rash Results Laboratory Results: 02/19/19 04:26 02/20/19 03:25 02/16/19 02/16/19 22:15 22:15 Creatine Kinase 94 CK-MB (CK-2) 0.36 Troponin I < 0.012 Impressions: Chest X-Ray 02/16/19 22:07 IMPRESSION: No acute cardiopulmonary process copyright 2010 [employer]- All Rights Reserved Head CT 02/16/19 22:07 IMPRESSION: Poorly defined areas of diminished attenuation in the left frontal and right posterior parietal regions, concerning for areas of age indeterminate infarct. Consider follow-up with dedicated MRI. TECHNICAL DOCUMENTATION: Quality ID # 436: Final reports with documentation of one or more dose reduction techniques (e.g., Automated exposure control, adjustment of the mA and/or kV according to patient size, use of iterative reconstruction technique) copyright 2011 [employer]- All Rights Reserved Brain MRI with MRA 02/17/19 00:00 IMPRESSION: NORMAL MRA OF THE [place]. Carotid Doppler Study 02/17/19 00:00 IMPRESSION: NO HEMODYNAMICALLY SIGNIFICANT STENOSIS. Head MRI 02/17/19 00:00 IMPRESSION: There is large acute infarction in the left frontotemporal lobe. There are smaller areas of acute infarction in the right yazidism lobe and right posterior parietal lobe. There is a small acute infarction in the right lobe of the cerebellum. EVIDENCE OF ACUTE STROKE: YES. Bilateral middle cerebral arteries. Right posterior cerebral artery. Assessment and Plan - Diagnosis (1) Right middle cerebral artery stroke Is this a current diagnosis for this admission?: Yes Plan: Bilateral MCA territory embolic stroke. Most likely secondary to underlying A. fib. Brain MRA/2D carotid Doppler negative for any hemodynamically significant stenosis. MRI of the brain positive for large acute infarction in the left frontotemporal lobe. There are smaller areas of acute infarction in the right yazidism lobe and right posterior parietal lobe. There is a small acute infarction in the right lobe of the cerebellum. Continue PT/OT/ST. Continue antiplatelets, high intensity statins, optimize blood pressure. Patient will be discharged home as she did not qualify for inpatient acute rehab. (2) Left middle cerebral artery stroke Is this a current diagnosis for this admission?: Yes Plan: Bilateral MCA territory embolic stroke. Most likely secondary to underlying A. fib. Brain MRA/2D carotid Doppler negative for any hemodynamically significant stenosis. MRI of the brain positive for large acute infarction in the left frontotemporal lobe. There are smaller areas of acute infarction in the right yazidism lobe and right posterior parietal lobe. There is a small acute infarction in the right lobe of the cerebellum. Continue PT/OT/ST. Continue antiplatelets, high intensity statins, optimize blood pressure. Patient will be discharged home as she did not qualify for inpatient acute rehab. (3) HTN (hypertension) Qualifiers: Hypertension type: essential hypertension Qualified Code(s): I10 - Essential (primary) hypertension Is this a current diagnosis for this admission?: Yes Plan: Normotensive, euvolemic. DC Cardizem drip. Stop beta-blockers switch to Cardizem PO. . Adjust meds as needed. (4) Atrial fibrillation with RVR Is this a current diagnosis for this admission?: Yes Plan: Not controlled. Patient medication dosage has been several times however patient still having erratic heart rates. Dr. Edward from cardiology has been consulted for further recommendation. [id number] Score 5. TSH within normal limits. Continue calcium channel blockers and anticoagulants. 02/18/2019. 2D echo no source no obvious cardiac source of embolus noted on TTE. Left ventricular ejection fraction normal. Off of Cardizem drip. Patient having erratic heart rates on beta-blockers. She drops to below 50s and goes up to 120s. She was switched to short acting Cardizem with good rate control however when switched to Cardizem DS erratic heart rate again. Switch to Cardizem p.o. short-acting 3 times daily. She and family were educated about the need of close follow-up with PCP and car diology for readjustment of her medications. Adjust dosage as needed. Outpatient PCP and cardiology follow-up.
[2019-02-23] MEDS: ATORVASTATIN CALCIUM 80 MG TABLET PO SCH (21:07)
[2019-02-24] MEDS: DILTIAZEM HCL 60 MG TABLET PO SCH ×2 (05:52→11:23)
[2019-02-24] MEDS: APIXABAN 5 MG TABLET PO SCH (09:14)
[2019-02-24] MEDS: ASPIRIN 81 MG TABLET, CHEWABLE PO SCH (09:14)
[2019-02-24 12:13] VITALS: BP 123/65
--- NOTE | 2019-02-24 12:35 | EKG REPORT ---
SEVERITY:- ABNORMAL ECG - SINUS RHYTHM FIRST DEGREE AV BLOCK BORDERLINE T ABNORMALITIES, ANT-LAT LEADS : Confirmed by: Espinoza Vazquez MD 24-Feb-2019 12:34:59
[2019-02-24] MEDS ORDERED: PROPAFENONE HCL 225 MG PO SCH (18:00)
--- NOTE | 2019-02-24 20:21 | Progress Note ---
Provider Note Provider Note: CARDIOLOGY PROGRESS NOTE by Dr. Natacha Edward on 02/24/2019.
--- NOTE | 2019-02-28 14:09 | PDOC DISCHARGE SUMMARY ---
General - Admit/Disc Date/PCP Admission Date/Primary Care Provider: 02/16/19 23:39 KASSIE CASTAÑEDA-Bridgette Discharge Date: 02/24/19 - Discharge Diagnosis (1) Right middle cerebral artery stroke Is this a current diagnosis for this admission?: Yes (2) Left middle cerebral artery stroke Is this a current diagnosis for this admission?: Yes (3) HTN (hypertension) Is this a current diagnosis for this admission?: Yes (4) Atrial fibrillation with RVR Is this a current diagnosis for this admission?: Yes - Additional Information Resuscitation Status: Full Code Discharge Diet: Cardiac Discharge Activity: Activity As Tolerated Prescriptions: Apixaban [Eliquis 5 mg Tablet] 5 mg PO BID 30 Days #60 tablet Aspirin [Aspirin 81 mg Chewable Tablet] 81 mg PO DAILY 30 Days #30 tab.chew Atorvastatin Calcium [Lipitor 80 mg Tablet] 80 mg PO QHS 30 Days #30 tablet Diltiazem HCl [Cardizem 60 mg Tablet] 30 mg PO Q6 30 Days #60 tablet Home Medications: Propafenone HCl [Propafenone HCl ER] 225 mg PO BID 02/17/19 Apixaban [Eliquis 5 mg Tablet] 5 mg PO BID 30 Days #60 tablet 02/24/19 Aspirin [Aspirin 81 mg Chewable Tablet] 81 mg PO DAILY 30 Days #30 tab.chew 02/24/19 Atorvastatin Calcium [Lipitor 80 mg Tablet] 80 mg PO QHS 30 Days #30 tablet 0 02/24/19 Diltiazem HCl [Cardizem 60 mg Tablet] 30 mg PO Q6 30 Days #60 tablet 02/24/19 History of Present Illness History of Present Illness: IMELDA MENA is a 73 year old female who presented to the emergency room with a history of sudden onset of aphasia noted by her son when he saw her today having noted that she was well yesterday at 3 PM with no sign of a aphasia at that time. He noted that she was able to walk and move all of her extremities but was unable to speak and seemed to be unable to understand more complicated questions or commands. She was immediately brought to the hospital and was found to have an expressive aphasia and some degree of a receptive aphasia in the emergency room. CT confirmed areas of hypodensity consistent with indeterminate age infarct without evidence of any acute hemorrhage. Due to the patient's a aphasia she is unable to participate in her medical history. 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 02/17/2019. Neurologically unchanged. Patient was anxious and fidgety in the morning and received 1 dose of IV benzos in preparation for undergoing MRI of the brain. Patient has been somnolent but arousable with severe a aphasia. Family has been on the bedside. MRI of brain confirmed bilateral MCA infarcts. 2D carotid and MRA head were negative. Pending 2D echo. 02/18/2019. Significant improvement of her neurological symptoms. Patient is alert awake cooperative physical examination unfortunately she has severe expressive and receptive aphasia. She does follow some commands, can repeat her name and recognizes her family members around. 02/19/2019. Significant improvement of her neurological symptoms. Patient is alert awake cooperative physical examination unfortunately she has severe expressive and receptive aphasia. She does follow some commands, can repeat her name and recognizes her family members around. 02/20/2019. No acute events overnight. Patient has significant improvement of her aphasia. She is alert and oriented x3. She is able to communicate however she responds very slowly. She denies any fever, chills, nausea, vomiting, diarrhea, constipation or any urinary symptoms. Blood pressure has been within normal ranges however heart rate has been very erratic she drops to below 50 and goes 120s. She is currently taking metoprolol which had to be decreased to 6.25 cannot be adequate for her blood pressure control, and switch her to Cardizem instead and see if her A. fib is better controlled. Patient can be discharged to rehab however placement is pending. 12/24/2018. No acute events overnight. Patient was able to ambulate with the help of physical therapy. Alert oriented x3. Mild improvement of her aphasia, denies any fever, chills, nausea, vomiting, diarrhea, constipation or any urinary symptoms. Pending rehab placement. 02/22/2019. No acute events overnight. Patient is ambulatory, however normal bladder and bowel function. Her aphasia is improving however still not back to baseline. Denies any fever, chills, nausea, vomiting, diarrhea, constipation, numbness, tingling, weakness. Pending placement to rehab. 02/23/2019. No acute events overnight. Patient is ambulatory, having normal bowel and bladder function. Aphasia is improving. Patient was evaluated by acute rehab however did not qualify for inpatient rehab admission. Recommendation is to discharge home with outpatient speech and occupational therapy. Patient heart rate is still erratic and controlled. Dr. Edward from cardiology has been consulted for recommendation on medication to consideration about her A. fib. She can be sent home once that recommendation has been received. Hospital Course Hospital Course: (1) Right middle cerebral artery stroke Bilateral MCA territory embolic stroke. Most likely secondary to underlying A. fib. Brain MRA negative and 2D carotid Doppler negative for any hemodynamically significant stenosis. MRI of the brain positive for large acute infarction in the left frontotemporal lobe. There are smaller areas of acute infarction in the right quaker lobe and right posterior parietal lobe. There is a small acute infarction in the right lobe of the cerebellum. 02/18/2019. 2D echo no source no obvious cardiac source of embolus noted on TTE. Left ventricular ejection fraction normal. Received PT/OT ST while inpatient. Started on antiplatelets, high intensity statins and BP optimized. Dr. Ceballos from inpatient rehab was consulted however she did not qualify for inpatient rehab instead recommendation was for outpatient PT/OT which were both arranged. (2) Left middle cerebral artery stroke Bilateral MCA territory embolic stroke. Most likely secondary to underlying A. fib. Brain MRA negative and 2D carotid Doppler negative for any hemodynamically significant stenosis. MRI of the brain positive for large acute infarction in the left frontotemporal lobe. There are smaller areas of acute infarction in the right quaker lobe and right posterior parietal lobe. There is a small acute infarction in the right lobe of the cerebellum. As #1. (3) HTN (hypertension) Normotensive, euvolemic. Initially was started on Cardizem drip for her underlying A. fib RVR and switch to p.o. Cardizem. Dosage is adjusted. (4) Atrial fibrillation with RVR Rate controlled.Patient medication dosage was titrated several times however patient was still having erratic heart rates. Dr. Edward from cardiology has been consulted for further recommendation commended Cardizem p.o. 30 mg every 6 and to restart her propafenone. [id number] Score 5. TSH within normal limits. Started on Cardizem drip and switch to p.o., restarted on propafenone and Eliquis. Follow-up with Dr. Shi Follow-up with Dr. Edward 02/18/2019. 2D echo no source no obvious cardiac source of embolus noted on TTE. Left ventricular ejection fraction normal. Patient has excellent family support and she and her family were educated and strongly advised about the need of close follow-up with PCP and cardiology for readjustment of her medications. Physical Exam Vital Signs: Temp Pulse Resp BP Pulse Ox 97.9 F 79 18 123/65 100 02/24/19 12:17 02/24/19 13:50 02/24/19 12:17 02/24/19 12:17 02/24/19 12:17 General appearance: PRESENT: no acute distress, well-developed, well-nourished Head exam: PRESENT: atraumatic, normocephalic Eye exam: PRESENT: conjunctiva pink, EOMI, PERRLA. ABSENT: scleral icterus Ear exam: PRESENT: normal external ear exam Mouth exam: PRESENT: moist, tongue midline Neck exam: ABSENT: carotid bruit, JVD, lymphadenopathy, thyromegaly Respiratory exam: PRESENT: clear to auscultation trista. ABSENT: rales, rhonchi, wheezes Cardiovascular exam: PRESENT: RRR. ABSENT: diastolic murmur, rubs, systolic murmur Pulses: PRESENT: normal dorsalis pedis pul Vascular exam: PRESENT: normal capillary refill GI/Abdominal exam: PRESENT: normal bowel sounds, soft. ABSENT: distended, guarding, mass, organolmegaly, rebound, tenderness Rectal exam: PRESENT: deferred Extremities exam: PRESENT: full ROM. ABSENT: calf tenderness, clubbing, pedal edema Neurological exam: PRESENT: alert, awake, oriented to person, oriented to place, oriented to time, oriented to situation, CN II-XII grossly intact, aphasic. ABSENT: motor sensory deficit Psychiatric exam: PRESENT: appropriate affect, normal mood. ABSENT: homicidal ideation, suicidal ideation Skin exam: PRESENT: dry, intact, warm. ABSENT: cyanosis, rash Results Laboratory Results: 02/19/19 04:26 02/20/19 03:25 02/16/19 02/16/19 22:15 22:15 Creatine Kinase 94 CK-MB (CK-2) 0.36 Troponin I < 0.012 Impressions: Chest X-Ray 02/16/19 22:07 IMPRESSION: No acute cardiopulmonary process copyright 2010 [employer]- All Rights Reserved Head CT 02/16/19 22:07 IMPRESSION: Poorly defined areas of diminished attenuation in the left frontal and right posterior parietal regions, concerning for areas of age indeterminate infarct. Consider follow-up with dedicated MRI. TECHNICAL DOCUMENTATION: Quality ID # 436: Final reports with documentation of one or more dose reduction techniques (e.g., Automated exposure control, adjustment of the mA and/or kV according to patient size, use of iterative reconstruction technique) copyright 2010 [employer]- All Rights Reserved Brain MRI with MRA 02/17/19 00:00 IMPRESSION: NORMAL MRA OF THE [place]. Carotid Doppler Study 02/17/19 00:00 IMPRESSION: NO HEMODYNAMICALLY SIGNIFICANT STENOSIS. Head MRI 02/17/19 00:00 IMPRESSION: There is large acute infarction in the left frontotemporal lobe. There are smaller areas of acute infarction in the right quaker lobe and right posterior parietal lobe. There is a small acute infarction in the right lobe of the cerebellum. EVIDENCE OF ACUTE STROKE: YES. Bilateral middle cerebral arteries. Right post erior cerebral artery. Qualifiers - * PATIENT BEING DISCHARGED WITH ANY OF THE FOLLOWING DIAGNOSIS: Stroke VTE patient discharged on overlapping Therapy?: Yes Stroke Pt being discharged on Anti-thrombolytic therapy?: Yes Stroke Pt being discharged on Anti-coagulation therapy?: Yes Stroke Pt being discharged on Statins?: Yes OR Pt being discharged on Aspirin therapy?: Yes OR Pt being discharged on Statins?: Yes OR Pt discharged ACEI/ARBS?: Yes HF Pt being discharged on ACEI for LVEF less than 40%?: Yes HF Pt being discharged on ARBS for LVEF less than 40%?: Yes
== END 2019-02-24 16:00 | disposition home or self-care (01) | DRG 66 ==
LOC: ER 21:58 → EH 23:39 → 3W 02-17 02:15
PROVIDERS: ADMIT Emergency Medicine; ATTEND Emergency Medicine
DX: I63.413 Cerebral infarction due to embolism of bilateral middle cerebral arteries (principal); I48.0 Paroxysmal atrial fibrillation; R47.01 Aphasia; I10 Essential (primary) hypertension; Z79.01 Long term (current) use of anticoagulants; Z79.82 Long term (current) use of aspirin; Z79.899 Other long term (current) drug therapy
CPT/HCPCS: 36415; 70450; 70544; 70551; 71045; 80048; 80053; 80061; 82550; 82553; 82962; 83735; 84439; 84443; 84481; 84484; 85025; 85027; 85610; 85730; 93005; 93010; 93306; 93880; 99291; J2060; J2405; J3490